=== PATIENT | female | born 1940 | race Caucasian/White ===

== ENCOUNTER 2022-09-27 11:20 | Inpatient (IN) ==
[2022-09-27] MEDS ORDERED: IOPAMIDOL 100 ML BOTTLE IV ONE (11:21)
--- NOTE | 2022-09-27 12:33 | Emergency Department Note ---
HPI General Chief complaint: Abdominal Pain Stated complaint: fall Time Seen by Provider: 09/27/22 12:33 Source: patient Mode of arrival: wheelchair Limitations: no limitations History of Present Illness HPI Narrative: Narrative: Patient is an 82-year-old female with a history of CVA, hyperlipidemia, A-fib, CKD, and CHF who presents to the emergency department due to nausea, vomiting, and increased bowel movements. She states that she has had multiple days of nausea, vomiting, and increased bowel movements. She states that she fell on Monday onto her right side. She states that since then she has had right arm pain, right chest/rib pain, and right leg pain. She endorses continued nausea. She also endorses abdominal pain that seems to be the worst in the right upper quadrant. She went to see her primary care provider, and her provider told her to come to the emergency department for imaging. Related Data Home Medications Medication Instructions Recorded Confirmed apixaban 5 mg tablet (Eliquis) 5 mg PO BID 08/31/20 09/27/22 atenolol 100 mg tablet 100 mg PO BID 08/31/20 09/27/22 levothyroxine 50 mcg tablet 50 mcg PO Q48 08/31/20 09/27/22 magnesium oxide 400 mg PO QDAY 08/31/20 09/27/22 multivitamin 1 tab PO QDAY 08/31/20 09/27/22 omega-3 fatty acids 1,000 mg 1,000 mg PO QDAY 08/31/20 09/27/22 capsule (Fish Oil Concentrate) potassium chloride 20 mEq 20 meq PO QDAY 08/31/20 09/27/22 tablet,extended release furosemide 20 mg tablet 40 mg PO QDAY 09/29/21 09/27/22 CholestOff Complete 450 tab PO QDAY 09/27/22 09/27/22 cholecalciferol (vitamin D3) 1,000 unit PO QDAY 09/27/22 09/27/22 ezetimibe 10 mg tablet (Zetia) 10 mg PO HS 09/27/22 09/27/22 levothyroxine 75 mcg tablet 75 mcg PO Q48H 09/27/22 09/27/22 nitroglycerin 0.4 mg sublingual 0.4 mg sublingual Q5M PRN Chest 09/27/22 09/27/22 tablet Pain spironolactone 25 mg tablet 25 mg PO QDAY 09/27/22 09/27/22 Allergies Allergy/AdvReac Type Severity Reaction Status Date / Time [id number] Reductase Allergy Severe edema and Verified 09/27/22 11:29 Inhibitor skin peels propoxyphene Allergy Unknown Unknown Verified 09/27/22 11:29 Review of Systems ROS ROS Narrative: Narrative: Constitutional: Denies fever or weakness Eyes: Denies eye pain or vision change ENT ED: Denies throat pain, hearing loss or rhinorrhea Cardiovascular: Reports chest pain; Denies dyspnea on exertion, orthopnea or edema Respiratory: Denies shortness of breath or cough Gastrointestinal: Reports abdominal pain, nausea and vomiting; Denies diarrhea, constipation, hematochezia or melena Musculoskeletal: Denies back pain or myalgia Integumentary: Denies rash or lesions Neurological: Denies headache, weakness, numbness, confusion or abnormal gait PFSH Narrative Patient History Narrative: Narrative: Medical/Surgical/Family History All Active Problems (Updated 09/27/22 @ 20:25 by Catracho Osuna MD) Acute cholecystitis (Acute) Cholecystitis, acute with cholelithiasis (Acute) Chronic obstructive pulmonary disease (Chronic) Pulmonary hypertension (Acute) Cough (Acute) SARA on CPAP (Chronic) High cholesterol (Chronic) Shortness of breath (Chronic) Palpitations (Chronic) Diarrhea (Chronic) Back pain (Chronic) CVA (cerebral vascular accident) (Chronic) History of skin cancer (Chronic) Morbid obesity (Chronic) Anxiety disorder (Chronic) Arthritis of both knees (Chronic) Hypothyroid (Chronic) Coronary arteriosclerosis (Chronic) Hyperlipidemia (Chronic) halfway (current) use of anticoagulants (Chronic) Pacemaker (Chronic) Atrial fibrillation (Chronic) Chronic kidney disease, stage III (moderate) (Chronic) Chronic diastolic heart failure (Chronic) Lymphocytic colitis (Chronic) 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) SARA (obstructive sleep apnea) (Chronic) Medical History Anxiety disorder Arthritis of both knees Atrial fibrillation Back pain Hipolito hyp ht/kd I-IV w hf Chronic diastolic heart failure Chronic kidney disease, stage III (moderate) Coronary arteriosclerosis CVA (cerebral vascular accident) Diarrhea High cholesterol History of skin cancer Hyperlipidemia Hypothyroid halfway (current) use of anticoagulants Lymphocytic colitis Morbid obesity SARA (obstructive sleep apnea) SARA on CPAP Pacemaker Palpitations Shortness of breath Surgical History History of appendectomy History of brain surgery Blood clot removed. History of cardiac pacemaker in situ History of hysterectomy History of lumpectomy of both breasts Family History Mother Bladder cancer Brother Bladder cancer Lung cancer Father Lung cancer Social History Smoking Status: Never smoker Alcohol Intake Frequency: does not drink Substance Use: does not use Exam Narrative Narrative: Narrative: General Limitations: no limitations General appearance: Present alert and in no apparent distress; Absent anxious, appears intoxicated or sleepy Head Head: Present atraumatic and normocephalic Eye Eye: Present EOMI; Absent scleral icterus or nystagmus ENT ENT: Present mucous membranes moist; Absent nasal congestion Neck Neck: Present full ROM and trachea midline Chest Chest: Present normal inspection, symmetric chest wall rise and tenderness Respiratory Respiratory: Present normal lung sounds bilaterally; Absent respiratory distress, rales/crackles, wheezes, stridor or accessory muscle use Cardiovascular Cardiovascular: Present regular rate, normal rhythm and normal heart sounds Adbominal Abdominal: Present soft, tenderness, guarding and normal bowel sounds; Absent distention, rebound or rigidity Extremities Extremities: Present normal inspection and full ROM Back Back: Present normal inspection and full ROM Neurological Neurological: Present alert and oriented X3 Psychiatric Psychiatric: Present normal affect and normal mood Skin Skin: Present warm (WNL), dry and normal color Course Vital Signs Vital signs: Vital Signs Temperature 97.0 F 09/27/22 11:25 Pulse Rate 65 09/27/22 11:25 Respiratory Rate 18 09/27/22 11:25 Blood Pressure 127/70 09/27/22 11:25 Pulse Oximetry (%) 93 09/27/22 11:25 Oxygen Delivery Method Room Air 09/27/22 11:25 Temperature 97.0 F 09/27/22 19:12 Pulse Rate 64 09/27/22 20:01 Respiratory Rate 18 09/27/22 19:12 Blood Pressure 126/64 09/27/22 20:01 Pulse Oximetry (%) 95 09/27/22 20:01 Oxygen Delivery Method Room Air 09/27/22 11:25 [facility] Narrative Medical decision making narrative: Narrative: Patient is an 82 yo F who presents to the emergency department due to nausea, vomiting, and abdominal pain. Differential diagnoses include gallbladder disease, hepatitis, sbo, gastroenteritis, colitis, and diverticulitis. Patient's labs are reassuring. CT shows cholecystitis. Dr. Strange saw patient on the board and called regarding plan. He agreed to see and evaluate patient for admission. Lab Data 09/27/22 13:13 Labs: Lab Results 09/27/22 09/27/22 09/27/22 Range/Units 12:51 12:52 13:13 WBC 9.7 (4.5-11.0) K/mcL RBC 4.72 (3.59-5.38) M/mcL Hgb 13.0 (11.2-15.7) g/dL Hct 40.6 (34.1-44.9) % POC Hct 43.0 (36-48) MCV 86.0 (80.0-100.0) fL MCH 27.5 (26.0-34.0) pg MCHC 32.0 (31.0-36.0) g/dL RDW 15.2 H (11.5-14.5) % Plt Count 236 (140-440) K/mcL MPV 11.4 (8.8-12.5) fL Immature Gran % (Auto) 0.5 (0.0-0.5) % Neut % (Auto) 52.5 (38.0-78.0) % Lymph % (Auto) 26.9 (15.5-49.0) % [place] % (Auto) 16.6 H (1.0-12.0) % Eos % (Auto) 3.0 (0.0-7.0) % Baso % (Auto) 0.5 (0.0-2.0) % Lymph # (Auto) 2.60 (1.50-4.80) K/mcL [place] # (Auto) 1.61 H (0.10-0.90) K/mcL Eos # (Auto) 0.29 (0.00-0.70) K/mcL Baso # (Auto) 0.05 (0.00-0.30) K/mcL Immature Gran # 0.05 (0.00-0.05) K/mcl Absolute Neutrophils 5.08 (1.80-8.00) K/mcL POC VBG pH 7.46 H (7.32-7.42) POC VBG pCO2 at Temp 40.7 L (41-51) POC VBG pO2 32 (25-40) POC VBG HCO3 28.8 H (24-28) POC VBG Total CO2 30.0 H (25-29) POC Venous O2 Sat 64.0 (40-70) POC VBG Base Excess 5.0 H* (-2-2) VBG Lactic Acid 1.0 (0.5-2) POC Sodium 137 (133-145) POC Potassium 3.2 L (3.3-5.1) POC Chloride 97 (96-108) POC Total CO2 27.0 (22-30) POC Anion Gap 17.0 H (8.0-16.0) POC BUN 24 H (6-20) POC Creatinine 1.0 (0.6-1.2) POC Glucose 115 H (70-105) POC WB Ioniz Calcium 1.15 L (1.16-1.32) Total Bilirubin (0.1-1.0) mg/dL Direct Bilirubin (<0.3) mg/dL AST (<32) U/L ALT (<40) U/L Alkaline Phosphatase (39-117) U/L NT-Pro-B Natriuret Pep (<450.0) pg/mL Total Protein (5.9-8.4) gm/dL Albumin (3.2-5.2) gm/dL Globulin (2.2-3.7) gm/dL Lipase (7-60) U/L Urine Color Urine Appearance (Clear) Urine pH (5.0-9.0) Ur Specific [place] (1.000-1.035) Urine Protein (Negative) mg/dL Urine Glucose (UA) (Negative) mg/dL Urine Ketones (Negative) mg/dL Urine Occult Blood (Negative) mg/dL Urine Nitrate (Negative) Urine Bilirubin (Negative) mg/dL Urine Urobilinogen mg/dL Ur Leukocyte Esterase (Negative) /uL Urine RBC (0-3) /hpf Urine WBC (0-4) /hpf Ur Squamous Epith Cells (0-4) /hpf Other Crystals (None) /hpf Urine Bacteria (0) /hpf Urine Mucus (None) /hpf Ur Culture Indicated? 09/27/22 09/27/2209/27/23 Range/Units 13:13 13:13 13:48 WBC (4.5-11.0) K/mcL RBC (3.59-5.38) M/mcL Hgb (11.2-15.7) g/dL Hct (34.1-44.9) % POC Hct (36-48) MCV (80.0-100.0) fL MCH (26.0-34.0) pg MCHC (31.0-36.0) g/dL RDW (11.5-14.5) % Plt Count (140-440) K/mcL MPV (8.8-12.5) fL Immature Gran % (Auto) (0.0-0.5) % Neut % (Auto) (38.0-78.0) % Lymph % (Auto) (15.5-49.0) % [place] % (Auto) (1.0-12.0) % Eos % (Auto) (0.0-7.0) % Baso % (Auto) (0.0-2.0) % Lymph # (Auto) (1.50-4.80) K/mcL [place] # (Auto) (0.10-0.90) K/mcL Eos # (Auto) (0.00-0.70) K/mcL Baso # (Auto) (0.00-0.30) K/mcL Immature Gran # (0.00-0.05) K/mcl Absolute Neutrophils (1.80-8.00) K/mcL POC VBG pH (7.32-7.42) POC VBG pCO2 at Temp (41-51) POC VBG pO2 (25-40) POC VBG HCO3 (24-28) POC VBG Total CO2 (25-29) POC Venous O2 Sat (40-70) POC VBG Base Excess (-2-2) VBG Lactic Acid (0.5-2) POC Sodium (133-145) POC Potassium (3.3-5.1) POC Chloride (96-108) POC Total CO2 (22-30) POC Anion Gap (8.0-16.0) POC BUN (6-20) POC Creatinine (0.6-1.2) POC Glucose (70-105) POC WB Ioniz Calcium (1.16-1.32) Total Bilirubin 0.7 (0.1-1.0) mg/dL Direct Bilirubin 0.3 H (<0.3) mg/dL AST 47 H (<32) U/L ALT 35 (<40) U/L Alkaline Phosphatase 140 H (39-117) U/L NT-Pro-B Natriuret Pep 2488.0 H (<450.0) pg/mL Total Protein 7.7 (5.9-8.4) gm/dL Albumin 3.2 (3.2-5.2) gm/dL Globulin 4.5 H (2.2-3.7) gm/dL Lipase 18 (7-60) U/L Urine Color Yellow Urine Appearance Hazy A (Clear) Urine pH 7.0 (5.0-9.0) Ur Specific [place] 1.006 (1.000-1.035) Urine Protein Negative (Negative) mg/dL Urine Glucose (UA) Negative (Negative) mg/dL Urine Ketones Negative (Negative) mg/dL Urine Occult Blood 0.03 (Negative) mg/dL Urine Nitrate Pos A (Negative) Urine Bilirubin Negative (Negative) mg/dL Urine Urobilinogen Negative mg/dL Ur Leukocyte Esterase Negative (Negative) /uL Urine RBC 9 H (0-3) /hpf Urine WBC 2 (0-4) /hpf Ur Squamous Epith Cells 1 (0-4) /hpf Other Crystals None (None) /hpf Urine Bacteria Few A (0) /hpf Urine Mucus Few A (None) /hpf Ur Culture Indicated? Yes Discharge Plan Patient/Caregiver Discharge Instructions Pt seen by STOCK CAR DRIVER/PA only: No Clinical Impression: Acute cholecystitis Patient Disposition: Xfer As Outpt/Obs ([facility]) Discharge Date/Time: 09/27/22 20:00
[2022-09-27 12:55] LABS: POC Calcium, Ionized 1.15 (1.16-1.32); POC Potassium 3.2 (3.3-5.1)
[2022-09-27] MEDS ORDERED: 0.9 % SODIUM CHLORIDE 1,000 ML IV ONE (13:45)
[2022-09-27 13:59] LABS: Basophils # (Auto) 0.05 K/mcL (0.00-0.30); Basophils % (Auto) 0.5 % (0.0-2.0); Eosinophils # (Auto) 0.29 K/mcL (0.00-0.70); Hematocrit 40.6 % (34.1-44.9); Lymphocytes % (Auto) 26.9 % (15.5-49.0); Mean Platelet Volume 11.4 fL (8.8-12.5); Monocytes # (Auto) 1.61 K/mcL (0.10-0.90); Monocytes % (Auto) 16.6 % (1.0-12.0); Neutrophils % (Auto) 52.5 % (38.0-78.0); Platelet Count 236 K/mcL (140-440); RBC 4.72 M/mcL (3.59-5.38); Red Cell Distribution Width 15.2 % (11.5-14.5); WBC 9.7 K/mcL (4.5-11.0)
[2022-09-27 14:17] LABS: ALT/SGPT 35 U/L (<40); AST/SGOT 47 U/L (<32); Albumin 3.2 gm/dL (3.2-5.2); Alkaline Phosphatase 140 U/L (39-117); Bilirubin,Direct 0.3 mg/dL (<0.3); Bilirubin,Total 0.7 mg/dL (0.1-1.0); Globulin 4.5 gm/dL (2.2-3.7)
--- NOTE | 2022-09-27 14:21 | XRay Report ---
CLINICAL INFORMATION: Fall, upper arm tenderness COMPARISON: None. FINDINGS: There is no fracture or other osseous abnormality. Moderate acromioclavicular and glenohumeral degenerative changes noted. Elbow joint is normal. No soft tissue normality. IMPRESSION: No fracture. Degenerative change Interpreted and Authenticated by: Kunal May 09/27/22
--- NOTE | 2022-09-27 14:22 | XRay Report ---
CLINICAL INFORMATION: Fall, thigh tenderness COMPARISON: None. FINDINGS: No fracture identified. Right hip is normal. Moderate patellofemoral and tibiofemoral degenerative change noted. Soft tissues are normal. IMPRESSION: No fracture. Degeneration Interpreted and Authenticated by: Kunal May 09/27/22
[2022-09-27 15:00] LABS: Appearance,Urine HAZY (Clear); Bacteria,Urine FEW /hpf (0); Bilirubin,Urine Negative (Negative); Color,Urine YELLOW; Culture Indicated,Urine Yes; Glucose,Urine (UA) Negative (Negative); Ketones,Urine Negative (Negative); Leukocyte Esterase,Urine Negative /uL (Negative); Mucus,Urine FEW /hpf; Nitrate,Urine POS (Negative); Protein,Urine Negative (Negative); Specific Gravity,Urine 1.006 (1.000-1.035); Urine Blood 0.03 mg/dL (Negative); Urine RBC 9 /hpf (0-3); Urine Squamous Epithelial Cell 1 /hpf (0-4); Urine WBC 2 /hpf (0-4); Urobilinogen,Urine Negative
--- NOTE | 2022-09-27 16:16 | Cat Scan Report ---
CLINICAL INFORMATION: Chest pain and shortness of breath. History of trauma-fall diffuse abdominal pain COMPARISON: None. TECHNIQUE: 80 cc of Isovue-370 were injected intravenously, and 50 seconds later, 0.625 mm helical slices were obtained from the lung apices through the subtrochanteric regions of the femurs. Following reconstruction, 2.5 mm sagittal, coronal and axial reformatted images were processed and reviewed at multiple windows and levels. 7 mm MIP reconstructions were obtained through the lungs to optimize nodule detection.The exam was performed using radiation dose optimization techniques including, but not limited to, automated exposure control, adjustment of the mA and/or kV according to patient size and use of iterative reconstruction technique. FINDINGS: Pulmonary parenchymal windows show moderate patchy airspace disease in the posterior right lower lobe which could indicate developing infiltrate or atypical atelectasis. Subsegmental atelectasis in the posterior left lower lobe. The pleural spaces are unremarkable-no effusions. Mediastinal windows show the heart is moderately enlarged with dual-chamber pacemaker leads as satisfactory position. Heavy calcific plaque present in the coronary arteries. The thoracic aorta and pulmonary arteries are normal diameter-no gross evidence of central pulmonary embolus. The left upper lobe pulmonary veins drain into an anomalous drainage vein stenting along the left paramediastinal region and anterior to the left left subclavian vein. This could represent a de facto [id number] shunt. The esophagus is grossly normal. A 17 mm nodule inferior left thyroid lobe has been stable since the previous chest CT and is likely an adenoma. Abdominal images show a 20 mm stone within the gallbladder. Gallbladder wall is massively thickened with pericholecystic fluid compatible with severe cholecystitis. Intrahepatic and common bile ducts are normal caliber CBD is 5 mm. The liver, both kidneys, adrenal glands, spleen, pancreas and aorta, including aortic branches, are normal in size, configuration and attenuation without focal lesion. There is no free air, free fluid or adenopathy. Pelvic images show normal urinary bladder. Anteflex uterus is normal postmenopausal size. Both ovarian regions are unremarkable. The stomach, small bowel, appendix region and large bowel are grossly normal. Bone windows show no osseous abnormality throughout the chest, abdomen or pelvis. IMPRESSION: 1. Severe cholecystitis. 2. Moderate airspace disease posterior right lower lobe either atypical atelectasis or a developing infiltrate. Subsegmental atelectasis present in the posterior left lower lobe. 3. 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 This could represent a de facto left to right shunt. This may contribute to hypoxia. 4. Moderate cardiomegaly with heavy calcific plaque in the coronary arteries. Interpreted and Authenticated by: Kunal May 09/27/22
[2022-09-27] MEDS ORDERED: morphine 4 MG/ML VIAL IV ONE (16:45)
[2022-09-27] MEDS ORDERED: ONDANSETRON 4 MG/2 ML VIAL IV ONE (16:45)
[2022-09-27] MEDS ORDERED: ONDANSETRON 4 MG/2 ML VIAL ONE (16:57)
[2022-09-27] MEDS ORDERED: HYDROmorphone 1 MG/ML SYRINGE IV PRN (17:26)
--- NOTE | 2022-09-27 17:41 | General Surg History&Physical ---
HPI History of Present Illness Patient information: Note initiated : 09/27/22 at 5:39 pm Service Date, if different from initiated Date: [] Patient: Tracy Mae 82 y/o F admitted on for fall. Chief Complaint: [] Chief complaint: Right upper quadrant abdominal pain canceled it is scheduled History of present illness: Ms. Mae is a 82 year old F with history of abdominal pain nausea and vomiting times. She is also had temperature elevations to 104 degrees. Her symptoms became much worse and she had to falls associated with the pain and fever. She developed more right upper quadrant pain and finally came to the emergency room where evaluation reveals that she has right upper quadrant and epigastric tenderness with guarding and rebound. CT of the abdomen shows acute cholecystitis with a large gallstone in the neck of the gallbladder. White blood count is 9.7. There is minimal elevation of AST and alkaline phosphatase. Bilirubin is normal. Patient has acute cholecystitis with cholelithiasis and will need urgent cholecystectomy. She is on apixaban but probably has not absorbed the medication because of nausea and vomiting. She is counseled for cholecystectomy to be performed tomorrow. She is informed that with the severity of the inflammation that she may need to have an open procedure if la paroscopic approach cannot be done safely. Patient has history of diastolic dysfunction but has a baseline systolic ejection fraction of 45%. The apixaban that she receives is for atrial fibrillation however she has a dual-chamber pacemaker in place. Constitutional Constitutional: Present anorexia, fatigue, lethargy, malaise and weakness Cardiovascular Cardiovascular: Present dyspnea on exertion, irregular heart rhythm, palpatations and pedal edema Respiratory Respiratory: Present dyspnea on exertion and pain on inspirtation; Absent wheezing Gastrointestinal Gastrointestinal: Present abdominal pain, belching, nausea and vomiting Musculoskeletal Musculoskeletal: Present abnormal gait, arthralgias, muscle cramps, muscle weakness and myalgias Integumentary Integumentary: Absent pruritus, rash, swelling or jaundice Neurological Neurological: Present frequent falls and memory loss Psychiatric Psychiatric: Present abnormal sleep pattern Hematologic/Lymphatic Hematologic/Lymphatic: Absent easy bleeding, easy bruising or lymphadenopathy Allergic/Immunologic Allergic/Immunologic: Absent tongue swelling, throat swelling, uticaria, wheezing or lip swelling PFSH PFSH All Active Problems (Updated 09/29/22 @ 17:35 by Alice Strange MD) Postoperative hemorrhage of skin following non-dermatologic procedure (Acute) Acute gangrenous cholecystitis (Acute) Acute cholecystitis (Acute) Cholecystitis, acute with cholelithiasis (Acute) Chronic obstructive pulmonary disease (Chronic) Pulmonary hypertension (Acute) Cough (Acute) SARA on CPAP (Chronic) High cholesterol (Chronic) Shortness of breath (Chronic) Palpitations (Chronic) Diarrhea (Chronic) Back pain (Chronic) CVA (cerebral vascular accident) (Chronic) History of skin cancer (Chronic) Morbid obesity (Chronic) Anxiety disorder (Chronic) Arthritis of both knees (Chronic) Hypothyroid (Chronic) Coronary arteriosclerosis (Chronic) Hyperlipidemia (Chronic) terminal make up operator (current) use of anticoagulants (Chronic) Pacemaker (Chronic) Atrial fibrillation (Chronic) Chronic kidney disease, stage III (moderate) (Chronic) Chronic diastolic heart failure (Chronic) Lymphocytic colitis (Chronic) 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) SARA (obstructive sleep apnea) (Chronic) Medical History Anxiety disorder Arthritis of both knees Atrial fibrillation Back pain Hipolito hyp ht/kd I-IV w hf Chronic diastolic heart failure Chronic kidney disease, stage III (moderate) Coronary arteriosclerosis CVA (cerebral vascular accident) Diarrhea High cholesterol History of skin cancer Hyperlipidemia Hypothyroid USP (current) use of anticoagulants Lymphocytic colitis Morbid obesity SARA (obstructive sleep apnea) SARA on CPAP Pacemaker Palpitations Shortness of breath Surgical History History of appendectomy History of brain surgery Blood clot removed. History of cardiac pacemaker in situ History of hysterectomy History of lumpectomy of both breasts Family History Mother Bladder cancer Brother Bladder cancer Lung cancer Father Lung cancer Social History marital status: occupational status: retired occupation: Retired-Nurse's Aide smoking status: Never smoker alcohol intake frequency: does not drink substance use type: does not use MEDS/ALLERGIES Home Medications and Allergies Home Medications Medication Instructions Recorded Confirmed Type apixaban 5 mg tablet (Eliquis) 5 mg PO BID 08/31/20 09/27/22 History atenolol 100 mg tablet 100 mg PO BID 08/31/20 09/27/22 History levothyroxine 50 mcg tablet 50 mcg PO Q48 08/31/20 09/27/22 History magnesium oxide 400 mg PO QDAY 08/31/20 09/27/22 History multivitamin 1 tab PO QDAY 08/31/20 09/27/22 History omega-3 fatty acids 1,000 mg 1,000 mg PO QDAY 08/31/20 09/27/22 History capsule (Fish Oil Concentrate) potassium chloride 20 mEq 20 meq PO QDAY 08/31/20 09/27/22 History tablet,extended release furosemide 20 mg tablet 40 mg PO QDAY 09/29/21 09/27/22 History CholestOff Complete 450 tab PO QDAY 09/27/22 09/27/22 History cholecalciferol (vitamin D3) 1,000 unit PO QDAY 09/27/22 09/27/22 History ezetimibe 10 mg tablet (Zetia) 10 mg PO HS 09/27/22 09/27/22 History levothyroxine 75 mcg tablet 75 mcg PO Q48H 09/27/22 09/27/22 History nitroglycerin 0.4 mg sublingual 0.4 mg sublingual Q5M PRN Chest 09/27/22 09/27/22 History tablet Pain spironolactone 25 mg tablet 25 mg PO QDAY 09/27/22 09/27/22 History Allergies Allergy/AdvReac Type Severity Reaction Status Date / Time [id number] Reductase Allergy Severe edema and Verified 09/27/22 11:29 Inhibitor skin peels propoxyphene Allergy Unknown Unknown Verified 09/27/22 11:29 Physical Examination Vital Signs Vital signs: Temp Pulse Resp BP Pulse Ox O2 Del Method 97.0 F 64 18 138/62 98 Room Air 09/27/22 11:25 09/27/22 16:46 09/27/22 11:25 09/27/22 16:46 09/27/22 16:46 09/27/22 11:25 General physical appearance General physical exam: well developed, well nourished, moderate distress, moderate pain, chronically ill and obese Eyes Eye exam: PERRL and normal ocular movement; negative icteric ENT ENT exam: normal mucosa Head Head exam IM: Present atraumatic, normal inspection and normocephalic Neck Neck exam: no masses, no bruits, trachea midline, no lymphadenopathy and no venous distension Cardiovascular Cardiovascular exam IM: Present +S1 and +S2; Absent irregular rhythm or JVD Respiratory Respiratory exam: normal expansion, normal respiratory effort and clear to auscultation Abdomen Abdomen: Present tender (Patient anything moderately severe tenderness in epigastrium and right upper quadrant with guarding and rebound ) Integumentary Integumentary: Present no rash, no growths and no abnormal pigmentation Neurologic Neurologic: Present normal coordination and normal sensation Musculoskeletal Musculoskeletal: Present other (Gait and stance not tested due to weakness) Psychiatric Psychiatric: Present oriented to time, oriented to person, oriented to place, speech is normal and memory intact Results Labs 10/02/22 05:46 10/02/22 05:46 Labs: Abnormal lab results 09/27/22 09/27/22 09/27/22 Range/Units 12:51 12:52 13:13 RDW 15.2 H (11.5-14.5) % [place] % (Auto) 16.6 H (1.0-12.0) % [place] # (Auto) 1.61 H (0.10-0.90) K/mcL POC VBG pH 7.46 H (7.32-7.42) POC VBG pCO2 at Temp 40.7 L (41-51) POC VBG HCO3 28.8 H (24-28) POC VBG Total CO2 30.0 H (25-29) POC VBG Base Excess 5.0 H* (-2-2) POC Potassium 3.2 L (3.3-5.1) POC Anion Gap 17.0 H (8.0-16.0) POC BUN 24 H (6-20) POC Glucose 115 H (70-105) POC WB Ioniz Calcium 1.15 L (1.16-1.32) Direct Bilirubin (<0.3) mg/dL AST (<32) U/L Alkaline Phosphatase (39-117) U/L Globulin (2.2-3.7) gm/dL Urine Appearance (Clear) Urine Nitrate (Negative) Urine RBC (0-3) /hpf Urine Bacteria (0) /hpf Urine Mucus (None) /hpf 09/27/22 09/27/22 Range/Units 13:13 13:48 RDW (11.5-14.5) % [place] % (Auto) (1.0-12.0) % [place] # (Auto) (0.10-0.90) K/mcL POC VBG pH (7.32-7.42) POC VBG pCO2 at Temp (41-51) POC VBG HCO3 (24-28) POC VBG Total CO2 (25-29) POC VBG Base Excess (-2-2) POC Potassium (3.3-5.1) POC Anion Gap (8.0-16.0) POC BUN (6-20) POC Glucose (70-105) POC WB Ioniz Calcium (1.16-1.32) Direct Bilirubin 0.3 H (<0.3) mg/dL AST 47 H (<32) U/L Alkaline Phosphatase 140 H (39-117) U/L Globulin 4.5 H (2.2-3.7) gm/dL Urine Appearance Hazy A (Clear) Urine Nitrate Pos A (Negative) Urine RBC 9 H (0-3) /hpf Urine Bacteria Few A (0) /hpf Urine Mucus Few A (None) /hpf Diabetes panel 09/27/22 Range/Units 13:13 AST 47 H (<32) U/L ALT 35 (<40) U/L Alkaline Phosphatase 140 H (39-117) U/L Total Protein 7.7 (5.9-8.4) gm/dL Albumin 3.2 (3.2-5.2) gm/dL Calcium panel 09/27/22 Range/Units 13:13 Albumin 3.2 (3.2-5.2) gm/dL Adrenal panel 09/27/22 Range/Units 13:13 Total Bilirubin 0.7 (0.1-1.0) mg/dL AST 47 H (<32) U/L ALT 35 (<40) U/L Alkaline Phosphatase 140 H (39-117) U/L Total Protein 7.7 (5.9-8.4) gm/dL Albumin 3.2 (3.2-5.2) gm/dL All other labs normal. A/P Assessment and plan (1) Cholecystitis, acute with cholelithiasis: Status: Acute (2) Chronic obstructive pulmonary disease: Status: Chronic Qualifiers: COPD type: emphysema Emphysema type: centrilobular Qualified Code(s): J43.2 - Centrilobular emphysema (3) Pulmonary hypertension: Status: Acute (4) SARA on CPAP: Status: Chronic (5) Coronary arteriosclerosis: Status: Chronic (6) terminal make up operator (current) use of anticoagulants: Status: Chronic (7) Pacemaker: Status: Chronic (8) Atrial fibrillation: Status: Chronic (9) Chronic kidney disease, stage III (moderate): Status: Chronic Plan proBNP Counseled for cholecystectomy possible open Type and cross 2 units packed red cells Sepsis Sepsis Identified: No Time Spent With Patient Time: Total time spent is greater than 50% in coordination of care (as documented) at patient's floor/unit and/or counseling patient:
[2022-09-27] MEDS ORDERED: 0.9 % SODIUM CHLORIDE 250 ML IV SCH (17:45)
--- NOTE | 2022-09-27 17:55 | XRay Report ---
CLINICAL INFORMATION: Preop evaluation; COPD COMPARISON: 05/24/2022. FINDINGS: Moderate cardiomegaly is unchanged. Pacemaker leads in satisfactory position. Mediastinum is normal. The pulmonary vessels are now mildly distended is mild interstitial edema throughout both lungs. Mild bibasilar airspace disease likely reflects atelectasis. There are small bilateral pleural effusions IMPRESSION: Mild CHF Interpreted and Authenticated by: Kunal May 09/27/22
[2022-09-27] MEDS: PIPERACILLIN SODIUM/TAZOBACTAM 3.375 GM in DEXTROSE 5% IN WATER 50 ML IV SCH (18:04)
[2022-09-27] MEDS: LACTATED RINGERS 1,000 ML IV SCH (18:30)
[2022-09-27] MEDS ORDERED: POTASSIUM CHLORIDE 40 MEQ in DEXTROSE 5% IN WATER 500 ML IV ONE (19:00)
[2022-09-27] MEDS: 0.9 % SODIUM CHLORIDE 10 ML SYRINGE IV SCH (21:29)
[2022-09-27] MEDS: SENNOSIDES 1 TABLET PO SCH (22:02)
[2022-09-27] MEDS: DOCUSATE SODIUM 100 MG CAPSULE PO SCH (22:02)
[2022-09-27] MEDS: ATENOLOL 50 MG TABLET PO SCH (22:02)
[2022-09-27] MEDS: oxyCODONE IR 5 MG TABLET PO PRN (23:30)
[2022-09-28] MEDS: PIPERACILLIN SODIUM/TAZOBACTAM 3.375 GM in DEXTROSE 5% IN WATER 50 ML IV SCH ×5 (00:55→23:57)
[2022-09-28] MEDS: oxyCODONE IR 5 MG TABLET PO PRN ×2 (04:34→19:32)
[2022-09-28 06:58] LABS: Basophils # (Auto) 0.06 K/mcL (0.00-0.30); Basophils % (Auto) 0.5 % (0.0-2.0); Eosinophils # (Auto) 0.42 K/mcL (0.00-0.70); Eosinophils % (Auto) 3.6 % (0.0-7.0); Hemoglobin 12.2 g/dL (11.2-15.7); Lymphocytes # (Auto) 1.88 K/mcL (1.50-4.80); Lymphocytes % (Auto) 15.9 % (15.5-49.0); Mean Cell Volume 86.6 fL (80.0-100.0); Mean Corpuscular HGB Conc 32.1 g/dL (31.0-36.0); Mean Platelet Volume 11.4 fL (8.8-12.5); Monocytes % (Auto) 12.7 % (1.0-12.0); Neutrophils % (Auto) 66.9 % (38.0-78.0); Platelet Count 226 K/mcL (140-440); RBC 4.39 M/mcL (3.59-5.38); Red Cell Distribution Width 15.5 % (11.5-14.5); WBC 11.8 K/mcL (4.5-11.0)
[2022-09-28] MEDS: LEVOTHYROXINE 50 MCG TABLET PO SCH (07:08)
[2022-09-28] MEDS: 0.9 % SODIUM CHLORIDE 10 ML SYRINGE IV SCH ×4 (07:08→23:58)
[2022-09-28 07:48] LABS: ALT/SGPT 29 U/L (<40); AST/SGOT 41 U/L (<32); Albumin 2.7 gm/dL (3.2-5.2); Albumin/Globulin Ratio 0.7 (1.0-2.3); Alkaline Phosphatase 128 U/L (39-117); Bilirubin,Direct 0.3 mg/dL (<0.3); Bilirubin,Total 0.8 mg/dL (0.1-1.0); Blood Urea Nitrogen 21 mg/dL (8-23); Calcium 8.4 mg/dL (8.6-10.4); Carbon Dioxide 22 mmol/L (22-30); Chloride 98 mmol/L (96-108); Globulin 4.1 gm/dL (2.2-3.7); Glomerular Filtration Rate 53; Glucose 116 mg/dL (70-105); Lactate Dehydrogenase 220 U/L (135-225); Phosphorous 3.4 mg/dL (2.5-4.5); Triglycerides 152 mg/dL (<150)
[2022-09-28] MEDS: DOCUSATE SODIUM 100 MG CAPSULE PO SCH ×2 (08:28→20:35)
[2022-09-28] MEDS ORDERED: SUGAMMADEX SODIUM 200 MG/2 ML VIAL IV ONE (08:30)
[2022-09-28] MEDS ORDERED: ONDANSETRON 4 MG/2 ML VIAL ONE (08:30)
[2022-09-28] MEDS ORDERED: MAGNESIUM SULFATE 2 GM/50 ML BAG IV ONE (08:30)
[2022-09-28] MEDS ORDERED: DEXAMETHASONE 10 MG/ML VIAL ONE (08:30)
[2022-09-28] MEDS ORDERED: PROPOFOL 200 MG/20 ML VIAL IV ONE (08:30)
[2022-09-28] MEDS ORDERED: KETAMINE 50 MG/ML Syringe (ANEST) IV ONE (08:30)
[2022-09-28] MEDS ORDERED: ROCURONIUM 10 MG/ML ML IV ONE (08:30)
[2022-09-28] MEDS ORDERED: fentaNYL 100 MCG/2 ML VIAL IV ONE (08:30)
[2022-09-28] MEDS ORDERED: LIDOCAINE HCL/PF 100 MG/5 ML SYRINGE IV ONE (08:30)
[2022-09-28] MEDS ORDERED: ACETAMINOPHEN 1,000 MG/100 ML BAG IV ONE (08:49)
[2022-09-28] MEDS ORDERED: fentaNYL 100 MCG/2 ML VIAL IV PRN (08:49)
[2022-09-28] MEDS ORDERED: ONDANSETRON 4 MG/2 ML VIAL IV PRN (08:49)
[2022-09-28] MEDS ORDERED: IPRATROPIUM/ALBUTEROL 3 ML AMPUL.NEB NEB PRN (08:49)
[2022-09-28] MEDS ORDERED: MEPERIDINE 25 MG/ML VIAL IV PRN (08:49)
[2022-09-28] MEDS ORDERED: NALOXONE HCL 0.4 MG/ML VIAL IV PRN (08:49)
[2022-09-28] MEDS ORDERED: LACTATED RINGERS 250 ML IV PRN (08:49)
[2022-09-28] MEDS ORDERED: PROMETHAZINE 25 MG/ML VIAL IV PRN (08:49)
[2022-09-28] MEDS ORDERED: METHOCARBAMOL 1,000 MG/10 ML VIAL IV PRN (08:49)
[2022-09-28] MEDS ORDERED: diphenhydrAMINE 50 MG/ML VIAL IV PRN (08:49)
[2022-09-28] MEDS ORDERED: LACTATED RINGERS 1,000 ML IV SCH (09:00)
--- NOTE | 2022-09-28 10:24 | Brief Operative Note ---
Brief Operative Note Date of procedure: 09/28/22 Pre-op diagnosis: acute cholecystitis with cholelithiasis Post-op diagnosis: other (gangrenous cholecystitis with perforation ;cholelithiasis) Procedure: open cholecystectomy with drainage Grafts/Implants: No (laexandrea drain #10 ) Anesthesia: GETA Findings: acute severe infection of gallbladder with perforation into duodenum; large gallstones Complications: none Surgeon: Alice Strange Estimated blood loss (cc): 50 Specimens Removed/Pathology: other (gallbladder with stones) Condition: stable Disposition: PACU
[2022-09-28] MEDS: ATENOLOL 50 MG TABLET PO SCH ×2 (12:16→20:35)
[2022-09-28] MEDS: LACTATED RINGERS 1,000 ML IV SCH ×2 (18:44→18:52)
[2022-09-28] MEDS: SENNOSIDES 1 TABLET PO SCH (19:25)
[2022-09-29] MEDS: oxyCODONE IR 5 MG TABLET PO PRN ×2 (04:54→20:40)
[2022-09-29] MEDS: PIPERACILLIN SODIUM/TAZOBACTAM 3.375 GM in DEXTROSE 5% IN WATER 50 ML IV SCH ×4 (05:30→23:14)
[2022-09-29] MEDS: 0.9 % SODIUM CHLORIDE 10 ML SYRINGE IV SCH ×3 (05:30→20:42)
[2022-09-29] MEDS: ATENOLOL 50 MG TABLET PO SCH ×3 (08:43→20:40)
[2022-09-29] MEDS: DOCUSATE SODIUM 100 MG CAPSULE PO SCH ×2 (08:43→20:40)
[2022-09-29] MEDS: LEVOTHYROXINE 50 MCG TABLET PO SCH (08:43)
[2022-09-29] MEDS: LACTATED RINGERS 1,000 ML IV SCH ×2 (08:46→22:10)
--- NOTE | 2022-09-29 12:00 | EKG ---
[facility] Test Date: 2022-09-27 Pat Name: Tracy Mae Department: ED Room: Gender: Female Account Financial Manager: : 1940 Requested By: Alice Strange Order Number: [id number] Reading MD: Stuart Black Measurements Intervals [place] Rate: 65 P: -72 OK: 78 QRS: 6 QRSD: 100 T: 227 QT: 468 QTc: 486 Interpretive Statements Ventricular-paced rhythm No further analysis attempted due to paced rhythm Electronically Signed On 09-29-2022 11:59:59 PDT by Stuart Black /store/M0/[id number].pdf
[2022-09-29 12:34] LABS: POC Calcium, Ionized 1.06 (1.16-1.32); POC Creatinine 1.3 (0.6-1.2); POC Potassium 4.1 (3.3-5.1)
[2022-09-29 13:20] LABS: Hematocrit 29.2 % (34.1-44.9); Hemoglobin 9.3 g/dL (11.2-15.7)
[2022-09-29 14:08] LABS: ALT/SGPT 26 U/L (<40); AST/SGOT 33 U/L (<32); Albumin 2.4 gm/dL (3.2-5.2); Albumin/Globulin Ratio 0.6 (1.0-2.3); Alkaline Phosphatase 110 U/L (39-117); Bilirubin,Direct 0.4 mg/dL (<0.3); Bilirubin,Total 0.9 mg/dL (0.1-1.0); Blood Urea Nitrogen 26 mg/dL (8-23); Calcium 8.6 mg/dL (8.6-10.4); Carbon Dioxide 22 mmol/L (22-30); Chloride 95 mmol/L (96-108); Globulin 3.7 gm/dL (2.2-3.7); Glomerular Filtration Rate 47; Glucose 152 mg/dL (70-105); Lactate Dehydrogenase 184 U/L (135-225); Phosphorous 4.1 mg/dL (2.5-4.5); Triglycerides 131 mg/dL (<150); Uric Acid 5.5 mg/dL (2.5-8.0)
[2022-09-29 14:10] LABS: Hematocrit 29.3 % (34.1-44.9); Hemoglobin 9.3 g/dL (11.2-15.7); Mean Cell Volume 88.5 fL (80.0-100.0); Mean Corpuscular HGB Conc 31.7 g/dL (31.0-36.0); Mean Platelet Volume 11.4 fL (8.8-12.5); Platelet Count 296 K/mcL (140-440); RBC 3.31 M/mcL (3.59-5.38); WBC 23.8 K/mcL (4.5-11.0)
[2022-09-29 14:40] LABS: Anisocytosis 1+ (None Seen); Band Neutrophils % 1 % (0-10); Lymphocytes % 6 % (15-49); Monocytes % (Manual) 4 % (1-12); Platelet Estimate NORMAL (Normal); RBC Morphology ABNORMAL (Normal); Segmented Neutrophils % 89 % (38-78)
--- NOTE | 2022-09-29 17:26 | General Surgery Progress Note ---
SUBJECTIVE Subjective Patient information: Note initiated : 09/29/22 at 5:20 pm Service Date, if different from initiated Date: [] Patient: Tracy Mae 82 y/o F admitted on 09/27/22 for fall/ cholecystitis. Chief Complaint: [] Principal diagnosis: acute cholecystitis with cholelithiasis Interval history: Patient is doing well with respect to her surgery. Her pain is controlled. She had some bleeding from her supraumbilical incision during the night and it required a suture ligation of the skin vessel. That has been adequate to stop the bleeding. LFTs show mild elevation but normal bilirubin. Hemoglobin has d ecreased to 9.3. White blood count is 23.8. She denies chest pain or shortness of breath but does state that she feels weak. Constitutional Vitals: Vital Signs Temp Pulse Resp BP Pulse Ox O2 Del Method O2 Flow Rate 98.0 F 87 19 107/47 98 Nasal Cannula 0.5 09/29/22 16:00 09/29/22 16:00 09/29/22 16:00 09/29/22 16:00 09/29/22 16:00 09/29/22 16:00 09/29/22 16:00 Period Temp Pulse Resp BP Sys/Archer Pulse Ox O2 Del Method O2 Flow Rate Last 24 Hr 97.2 F-99.1 F 59-87 15-19 103-137/47-86 90-100 Nasal Cannula- Room Air 0.5-2 Intake and Output 09/29/22 09/29/22 09/29/22 03:59 11:59 19:59 Intake Total 350 1768 50 Output Total 260 250 195 Balance 90 1518 -145 Weight 195 lb Patient Weight 09/30/22 03:59 Weight 195 lb Intake & Output: Intake & Output 09/29/22 09/29/22 09/29/22 03:59 11:59 19:59 Intake Total 350 1768 50 Output Total 260 250 195 Balance 90 1518 -145 Weight 195 lb Intake: IV 50 1050 50 Lactated Ringers 1,000 ml @ 75 1000 mls/hr IV .[id number] LIZET Rx#: [id number] Zosyn 3.375 gm In Dextrose 5% 50 50 50 in Water 50 ml @ 100 mls/hr IV Q6H LIZET Rx#:[id number] Oral 300 718 Output: Drainage 60 50 45 NORMA Drain 60 50 45 Void Amount 200 200 150 Other: Meal Breakfast Lunch Percent of Meal Consumed 100% 100% # Voids 1 Head Head exam: Present atraumatic, normal inspection and normocephalic Eye Eye exam: Present EOMI Pupils: Present normal accommodation ENT ENT exam: Present normal external ear exam and normal oropharynx Neck Neck exam: Present full ROM and normal inspection Respiratory Respiratory exam: Present normal respiratory exam and CTAB Cardiovascular Cardiovascular exam: Present normal rate and rhythm; Absent JVD GI/Abdominal GI/Abdominal exam: Present normal bowel sounds and soft Additional comments: Mild bruising of subcostal incision; bleeding from supraumbilical incision has ceased Extremities Exam Extremities exam: Present normal inspection and neurovascular intact Neurological Exam Neurological exam: Present alert, oriented X3 and reflexes normal; Absent motor sensory deficit A/P Assessment and plan (1) Acute gangrenous cholecystitis: Status: Acute (2) Postoperative hemorrhage of skin following non-dermatologic procedure: Status: Acute (3) Chronic obstructive pulmonary disease: Status: Chronic Qualifiers: COPD type: emphysema Emphysema type: centrilobular Qualified Code(s): J43.2 - Centrilobular emphysema (4) SARA on CPAP: Status: Chronic (5) MCFP (current) use of anticoagulants: Status: Chronic Plan Patient will continue antibiotics PT and OT will be ordered Time Spent With Patient Time: Total time spent is greater than 50% in coordination of care (as documented) at patient's floor/unit and/or counseling patient:
[2022-09-29] MEDS: SENNOSIDES 1 TABLET PO SCH (20:40)
[2022-09-29] MEDS: traZODone HCL 50 MG TABLET PO PRN (22:10)
[2022-09-30] MEDS: oxyCODONE IR 5 MG TABLET PO PRN (03:25)
[2022-09-30] MEDS: ONDANSETRON 4 MG/2 ML VIAL IV PRN ×3 (03:39→22:35)
[2022-09-30] MEDS: 0.9 % SODIUM CHLORIDE 10 ML SYRINGE IV SCH ×3 (05:34→20:06)
[2022-09-30] MEDS: PIPERACILLIN SODIUM/TAZOBACTAM 3.375 GM in DEXTROSE 5% IN WATER 50 ML IV SCH ×4 (05:34→23:56)
[2022-09-30] MEDS: LEVOTHYROXINE 50 MCG TABLET PO SCH (07:35)
[2022-09-30] MEDS: DOCUSATE SODIUM 100 MG CAPSULE PO SCH ×2 (08:38→20:06)
[2022-09-30] MEDS: ATENOLOL 50 MG TABLET PO SCH ×2 (08:46→20:05)
[2022-09-30] MEDS: LACTATED RINGERS 1,000 ML IV SCH ×2 (13:23→15:24)
--- NOTE | 2022-09-30 14:57 | General Surgery Progress Note ---
SUBJECTIVE Subjective Patient information: Note initiated : 09/30/22 at 2:56 pm Service Date, if different from initiated Date: [] Patient: Tracy Mae 82 y/o F admitted on 09/27/22 for fall/ cholecystitis. Chief Complaint: [] Principal diagnosis: acute cholecystitis with cholelithiasis Interval history: Patient feels better. She has less abdominal. She has had output of bilious drainage through her NORMA. Discussed this finding with her. We will continue to monitor over the weekend. She is tolerating diet without difficulty. Constitutional Vitals: Vital Signs Temp Pulse Resp BP Pulse Ox O2 Del Method O2 Flow Rate 97.4 F 60 20 110/60 96 Room Air 0.5 09/30/22 08:45 09/30/22 08:45 09/30/22 08:45 09/30/22 08:45 09/30/22 08:45 09/30/22 08:45 09/29/22 16:00 Period Temp Pulse Resp BP Sys/Archer Pulse Ox O2 Del Method O2 Flow Rate Last 24 Hr 97.0 F-98.0 F 60-87 16-20 107-124/46-72 95-98 Nasal Cannula- Room Air 0.5 Intake and Output 09/30/22 09/30/22 09/30/22 03:59 11:59 19:59 Intake Total 1350 1050 Output Total 290 20 Balance 1060 1030 Weight 193 lb 6 oz Intake & Output: Intake & Output 09/30/22 09/30/22 09/30/22 03:59 11:59 19:59 Intake Total 1350 1050 Output Total 290 20 Balance 1060 1030 Weight 193 lb 6 oz Intake: IV 1050 1050 Lactated Ringers 1,000 ml @ 75 1000 1000 mls/hr IV .[id number] LIZET Rx#: [id number] Zosyn 3.375 gm In Dextrose 5% 50 50 in Water 50 ml @ 100 mls/hr IV Q6H LIZET Rx#:[id number] Oral 300 Output: Drainage 40 20 NORMA Drain 40 20 Void Amount 250 Other: Urine Appearance Clear Urine Color Dark Yellow Urine Odor Strong Head Head exam: Present atraumatic, normal inspection and normocephalic Eye Eye exam: Present EOMI Pupils: Present normal accommodation ENT ENT exam: Present normal external ear exam and normal oropharynx Neck Neck exam: Present full ROM and normal inspection Respiratory Respiratory exam: Present normal respiratory exam and CTAB Cardiovascular Cardiovascular exam: Present normal rate and rhythm; Absent JVD GI/Abdominal GI/Abdominal exam: Present normal bowel sounds and soft Additional comments: Mild bruising of subcostal incision; bleeding from supraumbilical incision has ceased Extremities Exam Extremities exam: Present normal inspection and neurovascular intact Neurological Exam Neurological exam: Present alert, oriented X3 and reflexes normal; Absent motor sensory deficit A/P Assessment and plan (1) Acute gangrenous cholecystitis: Status: Acute (2) Chronic obstructive pulmonary disease: Status: Chronic Qualifiers: COPD type: emphysema Emphysema type: centrilobular Qualified Code(s): J43.2 - Centrilobular emphysema (3) Postoperative hemorrhage of skin following non-dermatologic procedure: Status: Acute (4) terminologist (current) use of anticoagulants: Status: Chronic Plan Check CBC and inpatient panel in the a.m. Will get CT of abdomen with oral contrast to prior to discharge Time Spent With Patient Time: Total time spent is greater than 50% in coordination of care (as documented) at patient's floor/unit and/or counseling patient:
[2022-09-30] MEDS: SENNOSIDES 1 TABLET PO SCH (20:06)
[2022-10-01] MEDS: PIPERACILLIN SODIUM/TAZOBACTAM 3.375 GM in DEXTROSE 5% IN WATER 50 ML IV SCH (05:08)
[2022-10-01] MEDS: 0.9 % SODIUM CHLORIDE 10 ML SYRINGE IV SCH ×3 (05:40→20:03)
[2022-10-01 06:46] LABS: Basophils # (Auto) 0.06 K/mcL (0.00-0.30); Basophils % (Auto) 0.3 % (0.0-2.0); Eosinophils # (Auto) 0.45 K/mcL (0.00-0.70); Eosinophils % (Auto) 2.5 % (0.0-7.0); Hematocrit 25.3 % (34.1-44.9); Hemoglobin 8.2 g/dL (11.2-15.7); Lymphocytes % (Auto) 23.4 % (15.5-49.0); Mean Cell Volume 86.6 fL (80.0-100.0); Mean Corpuscular HGB Conc 32.4 g/dL (31.0-36.0); Mean Platelet Volume 11.2 fL (8.8-12.5); Monocytes # (Auto) 1.75 K/mcL (0.10-0.90); Monocytes % (Auto) 9.7 % (1.0-12.0); Neutrophils % (Auto) 62.4 % (38.0-78.0); Platelet Count 301 K/mcL (140-440); RBC 2.92 M/mcL (3.59-5.38); Red Cell Distribution Width 15.1 % (11.5-14.5)
[2022-10-01 07:14] LABS: ALT/SGPT 21 U/L (<40); AST/SGOT 21 U/L (<32); Albumin 2.5 gm/dL (3.2-5.2); Albumin/Globulin Ratio 0.7 (1.0-2.3); Alkaline Phosphatase 103 U/L (39-117); Bilirubin,Direct 0.4 mg/dL (<0.3); Bilirubin,Total 0.6 mg/dL (0.1-1.0); Blood Urea Nitrogen 33 mg/dL (8-23); Calcium 8.4 mg/dL (8.6-10.4); Carbon Dioxide 24 mmol/L (22-30); Chloride 91 mmol/L (96-108); Globulin 3.4 gm/dL (2.2-3.7); Glomerular Filtration Rate 30; Glucose 126 mg/dL (70-105); Lactate Dehydrogenase 148 U/L (135-225); Phosphorous 3.4 mg/dL (2.5-4.5); Triglycerides 183 mg/dL (<150); Uric Acid 5.9 mg/dL (2.5-8.0)
[2022-10-01] MEDS: LEVOTHYROXINE 50 MCG TABLET PO SCH (07:42)
[2022-10-01] MEDS: ONDANSETRON 4 MG/2 ML VIAL IV PRN (07:46)
[2022-10-01] MEDS: DOCUSATE SODIUM 100 MG CAPSULE PO SCH ×2 (10:30→20:03)
[2022-10-01] MEDS: ATENOLOL 50 MG TABLET PO SCH ×2 (10:30→20:03)
[2022-10-01] MEDS: PIPERACILLIN SODIUM/TAZOBACTAM 2.25 GM in DEXTROSE 5% IN WATER 50 ML IV SCH ×3 (12:16→23:18)
[2022-10-01] MEDS: LACTATED RINGERS 1,000 ML IV SCH (12:17)
--- NOTE | 2022-10-01 13:51 | General Surgery Progress Note ---
SUBJECTIVE Subjective Patient information: Note initiated : 10/01/22 at 1:49 pm Service Date, if different from initiated Date: [] Patient: Tracy Mae 82 y/o F admitted on 09/27/22 for fall/ cholecystitis. Chief Complaint: [] Principal diagnosis: acute cholecystitis with cholelithiasis Interval history: Patient continues to improve. She is more alert and awake.. she denies nausea. She is passing flatus. White blood count is decreased to 18. Hemoglobin 8.2, hematocrit 25.3, potassium 3.6, BUN 33, creatinine 1.6. Constitutional Vitals: Vital Signs Temp Pulse Resp BP Pulse Ox O2 Del Method O2 Flow Rate 97.7 F 64 18 112/54 95 Room Air 0.5 10/01/22 12:00 10/01/22 12:00 10/01/22 12:00 10/01/22 12:00 10/01/22 12:00 10/01/22 12:00 09/29/22 16:00 Period Temp Pulse Resp BP Sys/Archer Pulse Ox O2 Del Method O2 Flow Rate Last 24 Hr 97.1 F-97.7 F 59-71 16-18 98-123/54-68 94-97 Room Air-Room Air Intake and Output 10/01/22 10/01/22 10/01/22 03:59 11:59 19:59 Intake Total 1450 1002 50 Output Total 500 Balance 950 1002 50 Weight 193 lb 9.6 oz Intake & Output: Intake & Output 10/01/22 10/01/22 10/01/22 03:59 11:59 19:59 Intake Total 1450 1002 50 Output Total 500 Balance 950 1002 50 Weight 193 lb 9.6 oz Intake: IV 1050 1002 50 Lactated Ringers 1,000 ml @ 50 1000 952 mls/hr IV .Q20H LIZET Rx#: [id number] Zosyn 2.25 gm In Dextrose 5% in 50 Water 50 ml @ 100 mls/hr IV Q6H LIZET Rx#:[id number] Zosyn 3.375 gm In Dextrose 5% 50 50 in Water 50 ml @ 100 mls/hr IV Q6H LIZET Rx#:[id number] Oral 400 Output: Drainage 200 NORMA Drain 200 Void Amount 300 Other: Meal Dinner Breakfast Percent of Meal Consumed 25% 50% Feeding Ability Independent Head Head exam: Present atraumatic, normal inspection and normocephalic Eye Eye exam: Present EOMI Pupils: Present normal accommodation ENT ENT exam: Present normal external ear exam and normal oropharynx Neck Neck exam: Present full ROM and normal inspection Respiratory Respiratory exam: Present normal respiratory exam and CTAB Cardiovascular Cardiovascular exam: Present normal rate and rhythm; Absent JVD GI/Abdominal GI/Abdominal exam: Present normal bowel sounds and soft Additional comments: Mild bruising of subcostal incision; bleeding from supraumbilical incision has ceased Extremities Exam Extremities exam: Present normal inspection and neurovascular intact Neurological Exam Neurological exam: Present alert, oriented X3 and reflexes normal; Absent motor sensory deficit A/P Assessment and plan (1) Acute gangrenous cholecystitis: Status: Acute (2) Chronic obstructive pulmonary disease: Status: Chronic Qualifiers: COPD type: emphysema Emphysema type: centrilobular Qualified Code(s): J43.2 - Centrilobular emphysema (3) Postoperative hemorrhage of skin following non-dermatologic procedure: Status: Acute (4) buttermaker (current) use of anticoagulants: Status: Chronic Plan Check CBC and inpatient panel in the a.m. Will get CT of abdomen with oral contrast to prior to discharge Time Spent With Patient Time: Total time spent is greater than 50% in coordination of care (as documented) at patient's floor/unit and/or counseling patient:
[2022-10-01] MEDS: FUROSEMIDE 20 MG TABLET PO SCH (14:37)
[2022-10-01] MEDS: ACETAMINOPHEN 1,000 MG/100 ML BAG IV PRN ×2 (15:51→21:50)
[2022-10-01] MEDS: SENNOSIDES 1 TABLET PO SCH (20:03)
[2022-10-01] MEDS: POLYETHYLENE GLYCOL 3350 17 GM PACKET PO SCH (20:03)
[2022-10-02] MEDS: PIPERACILLIN SODIUM/TAZOBACTAM 2.25 GM in DEXTROSE 5% IN WATER 50 ML IV SCH ×4 (05:11→23:09)
[2022-10-02] MEDS: 0.9 % SODIUM CHLORIDE 10 ML SYRINGE IV SCH ×4 (05:12→22:59)
[2022-10-02 06:28] LABS: Basophils # (Auto) 0.09 K/mcL (0.00-0.30); Basophils % (Auto) 0.5 % (0.0-2.0); Eosinophils # (Auto) 0.82 K/mcL (0.00-0.70); Eosinophils % (Auto) 4.8 % (0.0-7.0); Hematocrit 24.4 % (34.1-44.9); Hemoglobin 7.9 g/dL (11.2-15.7); Lymphocytes # (Auto) 3.99 K/mcL (1.50-4.80); Lymphocytes % (Auto) 23.2 % (15.5-49.0); Mean Cell Volume 86.5 fL (80.0-100.0); Mean Corpuscular HGB Conc 32.4 g/dL (31.0-36.0); Mean Platelet Volume 10.7 fL (8.8-12.5); Monocytes # (Auto) 1.44 K/mcL (0.10-0.90); Monocytes % (Auto) 8.4 % (1.0-12.0); Neutrophils % (Auto) 60.1 % (38.0-78.0); Platelet Count 326 K/mcL (140-440); RBC 2.82 M/mcL (3.59-5.38); WBC 17.2 K/mcL (4.5-11.0)
[2022-10-02 06:58] LABS: ALT/SGPT 21 U/L (<40); AST/SGOT 21 U/L (<32); Albumin 2.5 gm/dL (3.2-5.2); Albumin/Globulin Ratio 0.8 (1.0-2.3); Alkaline Phosphatase 109 U/L (39-117); Bilirubin,Direct 0.3 mg/dL (<0.3); Bilirubin,Total 0.7 mg/dL (0.1-1.0); Blood Urea Nitrogen 30 mg/dL (8-23); Calcium 8.4 mg/dL (8.6-10.4); Carbon Dioxide 26 mmol/L (22-30); Chloride 95 mmol/L (96-108); Globulin 3.2 gm/dL (2.2-3.7); Glomerular Filtration Rate 30; Glucose 99 mg/dL (70-105); Lactate Dehydrogenase 156 U/L (135-225); Phosphorous 3.2 mg/dL (2.5-4.5); Triglycerides 154 mg/dL (<150)
[2022-10-02] MEDS: LEVOTHYROXINE 25 MCG TABLET PO SCH (08:14)
[2022-10-02] MEDS: ATENOLOL 50 MG TABLET PO SCH ×2 (08:15→20:10)
[2022-10-02] MEDS: POLYETHYLENE GLYCOL 3350 17 GM PACKET PO SCH ×2 (08:16→20:11)
[2022-10-02] MEDS: FUROSEMIDE 20 MG TABLET PO SCH (08:16)
[2022-10-02] MEDS: DOCUSATE SODIUM 100 MG CAPSULE PO SCH ×2 (08:16→20:11)
[2022-10-02] MEDS ORDERED: FUROSEMIDE 20 MG TABLET PO SCH (09:00)
[2022-10-02] MEDS: ACETAMINOPHEN 1,000 MG/100 ML BAG IV PRN ×2 (11:21→17:04)
--- NOTE | 2022-10-02 14:52 | General Surgery Progress Note ---
SUBJECTIVE Subjective Patient information: Note initiated : 10/02/22 at 2:50 pm Service Date, if different from initiated Date: [] Patient: Tracy Mae 82 y/o F admitted on 09/27/22 for fall/ cholecystitis. Chief Complaint: [] Principal diagnosis: acute cholecystitis with cholelithiasis Interval history: Patient is doing well. She is afebrile. Her white count has decreased to 17,000 but her hemoglobin continues to drift down. Output through her subhepatic drain is definitely bilious and I am concerned about a possible duodenal leak from erosion of the large stone into the duodenal bulb. This was not clinically apparent at the time of surgery and was suspected but I could not confirm it. White blood count 17.2, hemoglobin 7.9, hematocrit 24.4, potassium 3.2, BUN 30, creatinine 1.6. LFTs are normal. Constitutional Vitals: Vital Signs Temp Pulse Resp BP Pulse Ox O2 Del Method O2 Flow Rate 97.5 F 64 20 117/67 96 Room Air 0.5 10/02/22 11:33 10/02/22 11:33 10/02/22 11:33 10/02/22 11:33 10/02/22 11:33 10/02/22 11:33 09/29/22 16:00 Period Temp Pulse Resp BP Sys/Archer Pulse Ox O2 Del Method O2 Flow Rate Last 24 Hr 97.2 F-98.5 F 58-79 16-20 89-136/47-84 96-100 CPAP-Room Air Intake and Output 10/02/22 10/02/22 10/02/22 03:59 11:59 19:59 Intake Total 150 350 150 Output Total 2805 80 Balance 150 -2455 70 Weight 193 lb 3.2 oz Intake & Output: Intake & Output 10/02/22 10/02/22 10/02/22 03:59 11:59 19:59 Intake Total 150 350 150 Output Total 2805 80 Balance 150 -2455 70 Weight 193 lb 3.2 oz Intake: IV 150 50 150 Zosyn 2.25 gm In Dextrose 5% in 50 50 50 Water 50 ml @ 100 mls/hr IV Q6H LIZET Rx#:[id number] Oral 300 Output: Drainage 155 NORMA Drain 155 Drainage 50 80 NORMA Drain 50 80 Void Amount 2600 Other: Urine Appearance Clear Urine Color Yellow Head Head exam: Present atraumatic, normal inspection and normocephalic Eye Eye exam: Present EOMI Pupils: Present normal accommodation ENT ENT exam: Present normal external ear exam and normal oropharynx Neck Neck exam: Present full ROM and normal inspection Respiratory Respiratory exam: Present normal respiratory exam and CTAB Cardiovascular Cardiovascular exam: Present normal rate and rhythm; Absent JVD GI/Abdominal GI/Abdominal exam: Present normal bowel sounds and soft Additional comments: Mild bruising of subcostal incision; bleeding from supraumbilical incision has ceased Extremities Exam Extremities exam: Present normal inspection and neurovascular intact Neurological Exam Neurological exam: Present alert, oriented X3 and reflexes normal; Absent motor sensory deficit A/P Assessment and plan (1) Acute gangrenous cholecystitis: Status: Acute (2) Postoperative hemorrhage of skin following non-dermatologic procedure: Status: Acute (3) Chronic obstructive pulmonary disease: Status: Chronic Qualifiers: COPD type: emphysema Emphysema type: centrilobular Qualified Code(s): J43.2 - Centrilobular emphysema (4) Cholecystitis, acute with cholelithiasis: Status: Acute (5) SARA on CPAP: Status: Chronic (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
[2022-10-02] MEDS ORDERED: POTASSIUM CHLORIDE 40 MEQ in DEXTROSE 5% IN WATER 500 ML IV SCH (15:26)
--- NOTE | 2022-10-02 15:52 | XRay Report ---
CLINICAL INFORMATION: Status post cholecystectomy. Outer quadrant pain. Evaluate for duodenal leak. COMPARISON: None. TECHNIQUE: Gastrografin was ingested under fluoroscopic observation. Spot films were obtained of the esophagus, stomach and duodenum. Total fluoroscopy time: One minute 48 seconds FINDINGS: The esophagus is normal in contour, caliber, and motility. No hiatal hernia or reflux could be induced. The stomach is normal size with unremarkable fold pattern. Prompt gastric emptying into a normal appearing duodenum is appreciated. IMPRESSION: Normal Upper G.I. no evidence of duodenal leak. Interpreted and Authenticated by: Kunal May 10/02/22
[2022-10-02] MEDS ORDERED: DIATRIZOATE MEGLU/DIATRIZO SOD 120 ML BOTTLE PO ONE (16:01)
[2022-10-02] MEDS: SENNOSIDES 1 TABLET PO SCH (20:11)
[2022-10-02] MEDS: ONDANSETRON 4 MG/2 ML VIAL IV PRN (22:59)
[2022-10-02] MEDS: traZODone HCL 50 MG TABLET PO PRN (23:13)
[2022-10-03] MEDS: ACETAMINOPHEN 1,000 MG/100 ML BAG IV PRN ×2 (04:55→11:54)
[2022-10-03] MEDS: 0.9 % SODIUM CHLORIDE 10 ML SYRINGE IV SCH ×4 (04:55→21:13)
[2022-10-03] MEDS: PIPERACILLIN SODIUM/TAZOBACTAM 2.25 GM in DEXTROSE 5% IN WATER 50 ML IV SCH ×3 (05:23→17:41)
[2022-10-03 06:40] LABS: Basophils # (Auto) 0.09 K/mcL (0.00-0.30); Basophils % (Auto) 0.6 % (0.0-2.0); Eosinophils # (Auto) 0.83 K/mcL (0.00-0.70); Eosinophils % (Auto) 5.1 % (0.0-7.0); Hematocrit 25.2 % (34.1-44.9); Hemoglobin 8.2 g/dL (11.2-15.7); Lymphocytes # (Auto) 4.09 K/mcL (1.50-4.80); Lymphocytes % (Auto) 25.1 % (15.5-49.0); Mean Cell Volume 87.8 fL (80.0-100.0); Mean Corpuscular HGB Conc 32.5 g/dL (31.0-36.0); Mean Platelet Volume 10.5 fL (8.8-12.5); Monocytes # (Auto) 1.29 K/mcL (0.10-0.90); Monocytes % (Auto) 7.9 % (1.0-12.0); Platelet Count 380 K/mcL (140-440); RBC 2.87 M/mcL (3.59-5.38); Red Cell Distribution Width 15.9 % (11.5-14.5); WBC 16.3 K/mcL (4.5-11.0)
[2022-10-03 07:23] LABS: ALT/SGPT 26 U/L (<40); AST/SGOT 29 U/L (<32); Albumin 2.4 gm/dL (3.2-5.2); Albumin/Globulin Ratio 0.8 (1.0-2.3); Alkaline Phosphatase 112 U/L (39-117); Bilirubin,Direct 0.3 mg/dL (<0.3); Bilirubin,Total 0.7 mg/dL (0.1-1.0); Blood Urea Nitrogen 25 mg/dL (8-23); Calcium 8.3 mg/dL (8.6-10.4); Carbon Dioxide 26 mmol/L (22-30); Chloride 99 mmol/L (96-108); Globulin 3.2 gm/dL (2.2-3.7); Glomerular Filtration Rate 32; Glucose 77 mg/dL (70-105); Lactate Dehydrogenase 214 U/L (135-225); Triglycerides 155 mg/dL (<150); Uric Acid 5.9 mg/dL (2.5-8.0)
[2022-10-03] MEDS: LEVOTHYROXINE 50 MCG TABLET PO SCH (08:13)
[2022-10-03] MEDS: FUROSEMIDE 20 MG TABLET PO SCH (08:51)
[2022-10-03] MEDS: DOCUSATE SODIUM 100 MG CAPSULE PO SCH ×2 (08:52→20:28)
[2022-10-03] MEDS: ATENOLOL 50 MG TABLET PO SCH ×2 (08:52→21:13)
[2022-10-03] MEDS: POLYETHYLENE GLYCOL 3350 17 GM PACKET PO SCH ×2 (08:52→20:28)
--- NOTE | 2022-10-03 17:20 | General Surgery Progress Note ---
SUBJECTIVE Subjective Patient information: Note initiated : 10/03/22 at 5:16 pm Service Date, if different from initiated Date: [] Patient: Tracy Mae 82 y/o F admitted on 09/27/22 for fall/ cholecystitis. Chief Complaint: [] Principal diagnosis: acute cholecystitis with cholelithiasis Interval history: Patient continues to do well. Her only problem at this time is increased bilious output through her drain. This is probably from an accessory duct since the cystic duct was stapled with 5 joey. This was discussed with the patient and her daughter. She will need to have an ERCP and probable stent placement but this can be done as an outpatient since the bilious drainage is adequately controlled with the drain. Constitutional Vitals: Vital Signs Temp Pulse Resp BP Pulse Ox O2 Del Method O2 Flow Rate 97.5 F 59 L 18 102/50 98 Room Air 0.5 10/03/22 16:00 10/03/22 16:00 10/03/22 16:00 10/03/22 16:00 10/03/22 16:00 10/03/22 16:00 09/29/22 16:00 Period Temp Pulse Resp BP Sys/Archer Pulse Ox O2 Del Method O2 Flow Rate Last 24 Hr 96.8 F-97.5 F 59-64 16-18 102-122/50-77 98-100 CPAP-Room Air Intake and Output 10/03/22 10/03/22 10/03/22 03:59 11:59 19:59 Intake Total 1800 390 150 Output Total 3 606 61 Balance 1797 -216 89 Intake & Output: Intake & Output 10/03/22 10/03/22 10/03/22 03:59 11:59 19:59 Intake Total 1800 390 150 Output Total 3 606 61 Balance 1797 -216 89 Intake: IV 620 150 150 Zosyn 2.25 gm In Dextrose 5% in 100 50 50 Water 50 ml @ 100 mls/hr IV Q6H LIZET Rx#:[id number] Potassium Chloride 40 Meq In 520 Dextrose 5% in Water 500 ml @ 130 mls/hr IV ONCE LIZET Rx#: [id number] Oral 1180 240 Output: Drainage 60 NORMA Drain 60 Drainage 145 60 NORMA Drain 145 60 # of times incontinent of urine 3 1 1 Urine/Stool Mix 400 Other: Meal Dinner Breakfast Percent of Meal Consumed 100% 100% Feeding Ability Independent Urine Color Yellow Urine Odor Strong Stool Size Small Stool Color Brown Yellow Stool Consistency Loose Watery Loose # Voids 1 # Bowel Movements 1 # of times incontinent of 4 Bowels Head Head exam: Present atraumatic, normal inspection and normocephalic Eye Eye exam: Present EOMI Pupils: Present normal accommodation ENT ENT exam: Present normal external ear exam and normal oropharynx Neck Neck exam: Present full ROM and normal inspection Respiratory Respiratory exam: Present normal respiratory exam and CTAB Cardiovascular Cardiovascular exam: Present normal rate and rhythm; Absent JVD GI/Abdominal GI/Abdominal exam: Present normal bowel sounds and soft Additional comments: Mild bruising of subcostal incision; Extremities Exam Extremities exam: Present normal inspection and neurovascular intact Neurological Exam Neurological exam: Present alert, oriented X3 and reflexes normal; Absent motor sensory deficit A/P Assessment and plan (1) Postoperative hemorrhage of skin following non-dermatologic procedure: Status: Acute (2) Acute gangrenous cholecystitis: Status: Acute (3) Postprocedural leakage from bile duct: Status: Acute (4) Chronic obstructive pulmonary disease: Status: Chronic Qualifiers: COPD type: emphysema Emphysema type: centrilobular Qualified Code(s): J43.2 - Centrilobular emphysema Plan Patient is clinically stable but improved. She will need to have nursing care facility and rehab treatment for a month or so prior to being discharged home. I will contact Verna Gramajo tomorrow to try to arrange ERCP with stent placement when Dr. Moore returns next week. Time Spent With Patient Time: Total time spent is greater than 50% in coordination of care (as documented) at patient's floor/unit and/or counseling patient:
[2022-10-03] MEDS: SENNOSIDES 1 TABLET PO SCH (20:29)
[2022-10-04] MEDS: PIPERACILLIN SODIUM/TAZOBACTAM 2.25 GM in DEXTROSE 5% IN WATER 50 ML IV SCH ×4 (01:12→12:36)
[2022-10-04] MEDS: ACETAMINOPHEN 1,000 MG/100 ML BAG IV PRN (01:12)
[2022-10-04] MEDS: 0.9 % SODIUM CHLORIDE 10 ML SYRINGE IV SCH ×2 (06:04→13:25)
[2022-10-04] MEDS: LEVOTHYROXINE 25 MCG TABLET PO SCH (07:21)
[2022-10-04] MEDS: POLYETHYLENE GLYCOL 3350 17 GM PACKET PO SCH ×2 (09:00→21:38)
[2022-10-04] MEDS: FUROSEMIDE 20 MG TABLET PO SCH (09:00)
[2022-10-04] MEDS: ATENOLOL 50 MG TABLET PO SCH ×2 (09:00→21:38)
[2022-10-04] MEDS: DOCUSATE SODIUM 100 MG CAPSULE PO SCH ×2 (09:00→21:38)
--- NOTE | 2022-10-04 13:42 | General Surgery Progress Note ---
SUBJECTIVE Subjective Patient information: Note initiated : 10/04/22 at 12:39 pm Service Date, if different from initiated Date: [] Patient: Tracy Mae 82 y/o F admitted on 09/27/22 for fall/ cholecystitis. Chief Complaint: [] Principal diagnosis: acute cholecystitis with cholelithiasis Interval history: Patient is doing well. She states that she feels much better. She has been afebrile. She is tolerating diet without difficulty. The bilious drainage is thinner and has decreased in volume. Patient is stable for transfer to shelter facility whenever bed is available Constitutional Vitals: Vital Signs Temp Pulse Resp BP Pulse Ox O2 Del Method O2 Flow Rate 97.5 F 64 16 103/52 94 Room Air 0.5 10/04/22 12:00 10/04/22 12:00 10/04/22 12:00 10/04/22 12:00 10/04/22 12:00 10/04/22 12:00 09/29/22 16:00 Period Temp Pulse Resp BP Sys/Archer Pulse Ox O2 Del Method O2 Flow Rate Last 24 Hr 97.3 F-98.2 F 59-66 12-18 98-126/47-69 94-98 Room Air-Room Air, CPAP Intake and Output 10/04/22 10/04/22 10/04/22 03:59 11:59 19:59 Intake Total 300 50 300 Output Total 1070 30 Balance -770 20 300 Intake & Output: Intake & Output 10/04/22 10/04/22 10/04/22 03:59 11:59 19:59 Intake Total 300 50 300 Output Total 1070 30 Balance -770 20 300 Intake: IV 150 50 Zosyn 2.25 gm In Dextrose 5% in 50 50 Water 50 ml @ 100 mls/hr IV Q6H LIZET Rx#:[id number] Oral 150 300 Output: Drainage 45 NORMA Drain 45 Drainage 0 30 NORMA Drain 0 30 Void Amount 750 # of times incontinent of urine 0 Urine/Stool Mix 275 Other: Meal Breakfast Percent of Meal Consumed 80 Urine Appearance Clear Urine Color Light [place] Stool Size Smear Stool Color Brown Brown Stool Consistency Liquid Watery # Voids 0 # Bowel Movements 1 Head Head exam: Present atraumatic, normal inspection and normocephalic Eye Eye exam: Present EOMI Pupils: Present normal accommodation ENT ENT exam: Present normal external ear exam and normal oropharynx Neck Neck exam: Present full ROM and normal inspection Respiratory Respiratory exam: Present normal respiratory exam and CTAB Cardiovascular Cardiovascular exam: Present normal rate and rhythm; Absent JVD GI/Abdominal GI/Abdominal exam: Present normal bowel sounds and soft Additional comments: Mild bruising of subcostal incision; Extremities Exam Extremities exam: Present normal inspection and neurovascular intact Neurological Exam Neurological exam: Present alert, oriented X3 and reflexes normal; Absent motor sensory deficit A/P Assessment and plan (1) Postprocedural leakage from bile duct: Status: Acute (2) Postoperative hemorrhage of skin following non-dermatologic procedure: Status: Acute (3) Acute gangrenous cholecystitis: Status: Acute (4) Chronic obstructive pulmonary disease: Status: Chronic Qualifiers: COPD type: emphysema Emphysema type: centrilobular Qualified Code(s): J43.2 - Centrilobular emphysema Plan Discontinue IV fluids Switch antibiotics to Augmentin twice daily Stable for discharge when a SNF bed is available Time Spent With Patient Time: Total time spent is greater than 50% in coordination of care (as documented) at patient's floor/unit and/or counseling patient:
[2022-10-04] MEDS: AMOXICILLIN/POTASSIUM CLAV 875 MG TABLET PO SCH (17:32)
[2022-10-04] MEDS: SENNOSIDES 1 TABLET PO SCH (21:38)
[2022-10-04] MEDS: oxyCODONE IR 5 MG TABLET PO PRN (22:00)
[2022-10-05] MEDS: 0.9 % SODIUM CHLORIDE 10 ML SYRINGE IV SCH ×2 (00:05→06:22)
[2022-10-05] MEDS: oxyCODONE IR 5 MG TABLET PO PRN (02:47)
[2022-10-05] MEDS: LEVOTHYROXINE 50 MCG TABLET PO SCH (07:05)
[2022-10-05] MEDS: AMOXICILLIN/POTASSIUM CLAV 875 MG TABLET PO SCH (08:34)
[2022-10-05] MEDS: FUROSEMIDE 20 MG TABLET PO SCH (08:34)
[2022-10-05] MEDS: DOCUSATE SODIUM 100 MG CAPSULE PO SCH (08:38)
[2022-10-05] MEDS: ATENOLOL 50 MG TABLET PO SCH (08:38)
[2022-10-05] MEDS: POLYETHYLENE GLYCOL 3350 17 GM PACKET PO SCH (08:38)
--- NOTE | 2022-10-05 10:37 | Discharge Summary ---
Discharge Provider Provider IMPORTANT FOLLOW-UP INFORMATION FOR PCP: Patient information: Note initiated : 10/05/22 at 10:36 am Service Date, if different from initiated Date: [] Patient: Tracy Mae 82 y/o F admitted on 09/27/22 for fall/ cholecystitis. Chief Complaint: [] Date of admission: 09/27/22 20:00 Discharge date: 10/05/22 Primary care physician: Tatiana Feliciano Admitting clinician: Alice Strange Attending physician on admission: Alice Strange Consults: 09/27/22 Consult to Physician [CONS] Stat Comment: Consulting Provider: Alice Strange Reason For Exam: Physician to Consult Attending physician on discharge: Alice Strange Discharging clinician: Alice Strange COURSE Hospital Course Hospital course: 82-year-old female with about a 10-day history of abdominal pain nausea with weakness fever sweats and syncopal episodes. Her pain became worse and she keysha me weaker. This prompted her to come to the emergency room where she was found to have a tender abdomen with guarding and rebound. White count was normal but upper abdominal CT showed cholecystitis with thickened stone in the neck of the gallbladder. She was admitted and started on antibiotics. On 28 September she underwent open cholecystectomy with findings of acute severe gangrenous cholecystitis with perforation. There was a large stone perforating through the infundibulum of the gallbladder and into the wall of the duodenum. In retrospect there was free air in the gallbladder that was not originally mentioned. Cholecystectomy was done and the duodenum was inspected. It appeared to be structurally intact without any evidence of for fistula formation.. Cystic duct was easily identified was clipped with clips distally and close to infundibulum of the gallbladder. Drain was placed in the subhepatic space. Patient tolerated procedure well. She was noted to have bilious drainage in the NORMA on the second postoperative day. There was some concern that she may have had a small duodenal fistula so an upper GI was done and there was no leak from the duodenum. The wall of the duodenal bulb second and third portions of the duodenum were intact. The leak is felt to be due to a probable accessory duct. She has been treated and is doing well. She was on apixaban at the time of the emergency surgery and had some bleeding from her incision. This was primarily in the skin and was controlled with Prolene suture. Her hemoglobin drifted down to the 8 range. It has remained in that range. She seems to tolerate it well so she was transfused. She has not been restarted on her apixaban.. The apixaban is given for atrial fibrillation with a fast ventricular response however she has a pacemaker and her heart rate is controlled in the 60-70 range. The probability of her developing blood clot with embolus is minimal based on her stable heart rate which is overridden by her pacemaker. She is clinically stable at this time and is tolerating. Plans will be made for her to be seen as an outpatient by Verna Gramajo and hopefully she will be able to get ERCP performed next week with stenting. This will controlled her biliary leak and the accessory ducts should close off. Patient will be seen in the office in 2 weeks. Discharge diagnosis: Acute gangrenous cholecystitis Secondary discharge diagnosis: Gallbladder perforation with erosion into the duodenum bulb without fistula Postprocedural leakage from bile duct Postoperative hemorrhage and skin following Dermatologic procedure Chronic obstructive lung disease Obstructive sleep apnea Chronic kidney disease. Reason for admission: Acute cholecystitis with cholelithiasis Procedures: Open cholecystectomy with drainage Pertinent studies/significant findings: Upper GI with small bowel follow-through CT of abdomen and pelvis with contrast Complications: Cutaneous bleeding due to apixaban Time Spent with Patient Time attestation: Total time spent providing and/or coordinating discharge services: Time spent: Greater than 30 minutes Physical Examination Vital Signs Vital signs: Temp Pulse Resp BP Pulse Ox O2 Del Method O2 Flow Rate 97.7 F 61 20 98/77 92 Room Air 0.5 10/05/22 07:57 10/05/22 07:57 10/05/22 07:57 10/05/22 07:57 10/05/22 07:57 10/05/22 07:57 09/29/22 16:00 General physical appearance General physical exam: well developed, well nourished, moderate distress, moderate pain, chronically ill and obese Eyes Eye exam: PERRL and normal ocular movement; negative icteric ENT ENT exam: normal mucosa Head Head exam IM: Present atraumatic, normal inspection and normocephalic Neck Neck exam: no masses, no bruits, trachea midline, no lymphadenopathy and no venous distension Cardiovascular Cardiovascular exam IM: Present +S1 and +S2; Absent irregular rhythm or JVD Respiratory Respiratory exam: normal expansion, normal respiratory effort and clear to auscu ltation Abdomen Abdomen: Present tender (Mild tenderness of right subcostal incision) Integumentary Integumentary: Present no rash, no growths and no abnormal pigmentation Neurologic Neurologic: Present normal coordination and normal sensation Musculoskeletal Musculoskeletal: Present other (Gait and stance not tested due to weakness) Psychiatric Psychiatric: Present oriented to time, oriented to person, oriented to place, speech is normal and memory intact Discharge Plan Patient/Caregiver Discharge Instructions Activity: increase activity as tolerated Diet: Regular Diet and Low Fat Prescriptions: Discontinued Eliquis 5 mg tablet 5 mg PO BID No Action atenolol 100 mg tablet 100 mg PO BID potassium chloride 20 mEq tablet extended release 20 meq PO QDAY levothyroxine 50 mcg tablet 50 mcg PO Q48 Rx Instructions: ALTERNATES 50 MCG WITH 75 MCG. TAKES 50MCG ON MON, , SAT. TAKES 75 MCG ON MON,,,FR[place] omega-3 fatty acids [Fish Oil Concentrate] 1,000 mg capsule 1,000 mg PO QDAY multivitamin Tablet 1 tab PO QDAY magnesium oxide 400 mg magnesium tablet 400 mg PO QDAY furosemide 20 mg tablet 40 mg PO QDAY levothyroxine 75 mcg Tablet 75 mcg PO Q48H Rx Instructions: ALTERNATES 50 MCG WITH 75 MCG. TAKES 50MCG ON , SAT. TAKES 75 MCG ON MON,,FR[place] spironolactone 25 mg Tablet 25 mg PO QDAY nitroglycerin 0.4 mg Tablet, Sublingual 0.4 mg SUBLINGUAL Q5M PRN (Reason: Chest Pain) Rx Instructions: do not exceed 3 doses per episode ezetimibe [Zetia] 10 mg Tablet 10 mg PO HS CholestOff Complete 450 tab PO QDAY cholecalciferol (vitamin D3) 1,000 unit PO QDAY Prescription drug monitoring program results: PDMP not reviewed Follow Up Plan Follow up with: Alice Strange MD [Physician] - 10/13/22 10:30 am Patient Disposition: Home, Self-Care Assessment: Patient is clinically improved she still has significant bilious leak Plan of Treatment: Evaluation and GI for ERCP with stenting next week Prognosis: Good Rehab Potential: Good I certify that the patient requires SNF services: Yes Overall status at discharge: patient is progressing back to baseline Discharge Orders: Discharge Order (Routine); Ordered 10/05/22 Ordered By: Alice Strange Pending Pending Pending: Resuscitation Status Resuscitate (Full Code) Diet Regular Diet Start MonOct 03 1321 Amoxicillin/Clavulanate Potassium (Amoxicillin/Potassium Clav 875 Mg Tablet) [facility] Protocol Last Admin: 10/05/22 08:34 Dose: 875 mg Documented By: Admin: 10/04/22 17:32 Dose: 875 mg Documented By: ROGER Atenolol (Atenolol 50 Mg Tablet) 100 mg PO BID [facility] Last Admin: 10/05/22 08:38 Dose: Not Given Documented By: Admin: 10/04/22 21:38 Dose: 100 mg Documented By: Admin: 10/04/22 09:00 Dose: 100 mg Documented By: Admin: 10/03/22 21:13 Dose: 100 mg Documented By: Admin: 10/03/22 08:52 Dose: 100 mg Documented By: Admin: 10/02/22 20:10 Dose: 100 mg Documented By: Admin: 10/02/22 08:15 Dose: 100 mg Documented By: Admin: 10/01/22 20:03 Dose: 100 mg Documented By: Admin: 10/01/22 10:30 Dose: 100 mg Documented By: Admin: 09/30/22 20:05 Dose: 100 mg Documented By: Admin: 09/30/22 08:46 Dose: 100 mg Documented By: Admin: 09/29/22 20:40 Dose: 100 mg Documented By: Admin: 09/29/22 11:37 Dose: Not Given Documented By: Admin: 09/28/22 20:35 Dose: 100 mg Documented By: Admin: 09/28/22 12:16 Dose: Not Given Documented By: Admin: 09/27/22 22:02 Dose: 100 mg Documented By: NEDA Docusate Sodium (Docusate Sodium 100 Mg Capsule) 100 mg PO BID [facility] Last Admin: 10/05/22 08:38 Dose: Not Given Documented By: Admin: 10/04/22 21:38 Dose: Not Given Documented By: Admin: 10/04/22 09:00 Dose: 100 mg Documented By: Admin: 10/03/22 20:28 Dose: Not Given Documented By: Admin: 10/03/22 08:52 Dose: Not Given Documented By: Admin: 10/02/22 20:11 Dose: Not Given Documented By: Admin: 10/02/22 08:16 Dose: 100 mg Documented By: Admin: 10/01/22 20:03 Dose: 100 mg Documented By: Admin: 10/01/22 10:30 Dose: 100 mg Documented By: Admin: 09/30/22 20:06 Dose: 100 mg Documented By: Admin: 09/30/22 08:38 Dose: 100 mg Documented By: Admin: 09/29/22 20:40 Dose: Not Given Documented By: Admin: 09/29/22 08:43 Dose: 100 mg Documented By: Admin: 09/28/22 20:35 Dose: 100 mg Documented By: Admin: 09/28/22 08:28 Dose: Not Given Documented By: Admin: 09/27/22 22:02 Dose: 100 mg Documented By: NEDA Furosemide (Furosemide 20 Mg Tablet) 40 mg PO QDAY [facility] Last Admin: 10/05/22 08:34 Dose: 40 mg Documented By: Admin: 10/04/22 09:00 Dose: 40 mg Documented By: Admin: 10/03/22 08:51 Dose: 40 mg Documented By: Admin: 10/02/22 08:16 Dose: 40 mg Documented By: Admin: 10/01/22 14:37 Dose: 40 mg Documented By: ELIZABETH Hydromorphone HCl (Hydromorphone 1 Mg/Ml Syringe) 1 mg IV Q2HP PRN; Protocol PRN Reason: Per Pain Protocol Last Admin: 09/29/22 23:51 Dose: 1 mg Documented By: DEMETRIO Acetaminophen (Ofirmev) 1,000 mg in 100 mls @ 200 mls/hr IV Q6HP PRN; Protocol PRN Reason: PAIN/FEVER > 101 Last Infusion: 10/04/22 02:15 Dose: 0 mls/hr Documented By: Admin: 10/04/22 01:12 Dose: 200 mls/hr Documented By: Infusion: 10/03/22 12:48 Dose: 0 mls/hr Documented By: Admin: 10/03/22 11:54 Dose: 200 mls/hr Documented By: Infusion: 10/03/22 05:27 Dose: 0 mls/hr Documented By: Admin: 10/03/22 04:55 Dose: 200 mls/hr Documented By: Infusion: 10/02/22 17:46 Dose: 0 mls/hr Documented By: Admin: 10/02/22 17:04 Dose: 200 mls/hr Documented By: Infusion: 10/02/22 12:01 Dose: 0 mls/hr Documented By: Admin: 10/02/22 11:21 Dose: 200 mls/hr Documented By: Infusion: 10/01/22 22:29 Dose: 0 mls/hr Documented By: Admin: 10/01/22 21:50 Dose: 200 mls/hr Documented By: Infusion: 10/01/22 16:31 Dose: 0 mls/hr Documented By: Admin: 10/01/22 15:51 Dose: 200 mls/hr Documented By: ELIZABETH Levothyroxine Sodium (Levothyroxine 25 Mcg Tablet) 25 mcg PO Q48H [facility] Last Admin: 10/04/22 07:21 Dose: 25 mcg Documented By: Admin: 10/02/22 08:14 Dose: 25 mcg Documented By: CHANDA Levothyroxine Sodium (Levothyroxine 50 Mcg Tablet) 50 mcg PO Q48H [facility] Last Admin: 10/05/22 07:05 Dose: 50 mcg Documented By: Admin: 10/03/22 08:13 Dose: 50 mcg Documented By: ANALI Ondansetron HCl (Ondansetron 4 Mg/2 Ml Vial) 4 mg IV Q6HP PRN PRN Reason: Nausea And Vomiting Last Admin: 10/02/22 22:59 Dose: 4 mg Documented By: Admin: 10/01/22 07:46 Dose: 4 mg Documented By: Admin: 09/30/22 22:35 Dose: 4 mg Documented By: Admin: 09/30/22 15:23 Dose: 4 mg Documented By: Admin: 09/30/22 03:39 Dose: 4 mg Documented By: DEMETRIO Oxycodone HCl (Oxycodone Ir 5 Mg Tablet) 10 mg PO Q4HP PRN; Protocol PRN Reason: Per Pain Protocol Last Admin: 10/05/22 02:47 Dose: 5 mg Documented By: Admin: 10/04/22 22:00 Dose: 10 mg Documented By: Admin: 09/30/22 03:25 Dose: 10 mg Documented By: Admin: 09/29/22 20:40 Dose: 10 mg Documented By: Admin: 09/29/22 04:54 Dose: 10 mg Documented By: Admin: 09/28/22 19:32 Dose: 10 mg Documented By: Admin: 09/28/22 04:34 Dose: 10 mg Documented By: JERBry Admin: 09/27/22 23:30 Dose: 10 mg Documented By: NEDA Polyethylene Glycol (Polyethylene Glycol 3350 17 Gm Packet) 17 gm PO BID [facility] Admin: 10/05/22 08:38 Dose: Not Given Documented By: Admin: 10/04/22 21:38 Dose: Not Given Documented By: Admin: 10/04/22 09:00 Dose: 17 gm Documented By: Admin: 10/03/22 20:28 Dose: Not Given Documented By: Admin: 10/03/22 08:52 Dose: Not Given Documented By: Admin: 10/02/22 20:11 Dose: Not Given Documented By: Admin: 10/02/22 08:16 Dose: 17 gm Documented By: Admin: 10/01/22 20:03 Dose: 17 gm Documented By: MAYNOR Senna (Sennosides 1 Tablet) 2 tab PO HS [facility] Last Admin: 10/04/22 21:38 Dose: Not Given Documented By: Admin: 10/03/22 20:29 Dose: Not Given Documented By: Admin: 10/02/22 20:11 Dose: Not Given Documented By: Admin: 10/01/22 20:03 Dose: 2 tab Documented By: Admin: 09/30/22 20:06 Dose: 2 tab Documented By: Admin: 09/29/22 20:40 Dose: 2 tab Documented By: Admin: 09/28/22 19:25 Dose: Not Given Documented By: Admin: 09/27/22 22:02 Dose: 2 tab Documented By: NEDA Sodium Chloride (0.9 % Sodium Chloride 10 Ml Syringe) 10 ml IV Q8 [facility] Admin: 10/05/22 06:22 Dose: Not Given Documented By: [facility] Admin: 10/05/22 00:05 Dose: Not Given Documented By: Admin: 10/04/22 13:25 Dose: Not Given Documented By: Admin: 10/04/22 06:04 Dose: 10 ml Documented By: Admin: 10/03/22 21:13 Dose: 10 ml Documented By: Admin: 10/03/22 13:16 Dose: 10 ml Documented By: Admin: 10/03/22 05:24 Dose: 10 ml Documented By: Admin: 10/03/22 04:55 Dose: 10 ml Documented By: Admin: 10/02/22 22:59 Dose: 10 ml Documented By: Admin: 10/02/22 20:10 Dose: 10 ml Documented By: Admin: 10/02/22 16:44 Dose: 10 ml Documented By: Admin: 10/02/22 05:12 Dose: 10 ml Documented By: Admin: 10/01/22 20:03 Dose: 10 ml Documented By: Admin: 10/01/22 12:17 Dose: 10 ml Documented By: Admin: 10/01/22 05:40 Dose: 10 ml Documented By: Admin: 09/30/22 20:06 Dose: 10 ml Documented By: Admin: 09/30/22 14:44 Dose: 10 ml Documented By: Admin: 09/30/22 05:34 Dose: 10 ml Documented By: Admin: 09/29/22 20:42 Dose: 10 ml Documented By: Admin: 09/29/22 14:00 Dose: 10 ml Documented By: Admin: 09/29/22 05:30 Dose: 10 ml Documented By: Admin: 09/28/22 23:58 Dose: 10 ml Documented By: Admin: 09/28/22 20:35 Dose: Not Given Documented By: Admin: 09/28/22 15:24 Dose: Not Given Documented By: Admin: 09/28/22 07:08 Dose: Not Given Documented By: Admin: 09/27/22 21:29 Dose: Not Given Documented By: NEDA Trazodone HCl (Trazodone Hcl 50 Mg Tablet) 50 mg PO HSP PRN PRN Reason: Insomnia Last Admin: 10/02/22 23:13 Dose: 50 mg Documented By: Admin: 09/29/22 22:10 Dose: 50 mg Documented By: DEMETRIO Shift Summary 10/05/22 02:01 Shift Summary by Kanchan Crawford Primary Diagnosis: cholecystitis, multiple falls Registration Status: Date of Surgery (if applicable):09-28-2022- open cholecystectomy. Pertinent Medical Dx/Issue(s): A-fib,CKD,CVA,Hyperlipidemia,pacer Med management (antibiotics, diuretics, BP): switched to oral Augmentin, no IV placement Skin/Wound Care: bruising to left arm, medial surgical site with NORMA drain on right side Vital Signs with Trends: VSS on RA O2, liter flow/saturations:RA,C-pap at noc Pain management (acute vs. chronic): Thalia 10mg given at 2200 Lab/Rad (abnormals, trends): no labs drawn since 10/03 Neuro/Mental Status: A&O Urinary Elimination Device: Purewick for incontinence Urinary output greater than 30mL/hr? yes Date of last BM: 10/04- pt declined Colace and Senokot PO, stated she has had several loose BM recently Lines/Tubes: no IV placement Activity: Up with assist, FWW gait belt Recommendations/questions for MD: Discharge Plan (needs, disposition, etc): Will discharge to [facility] Initialized on 10/05/22 02:01 - END OF NOTE
--- NOTE | 2022-10-05 11:03 | Discharge Summary ---
Discharge Provider Provider IMPORTANT FOLLOW-UP INFORMATION FOR PCP: Patient information: Note initiated : 10/05/22 at 11:02 am Service Date, if different from initiated Date: [] Patient: Tracy Mae 82 y/o F admitted on 09/27/22 for fall/ cholecystitis. Chief Complaint: [] Date of admission: 09/27/22 20:00 Primary care physician: Tatiana Feliciano Consults: 09/27/22 Consult to Physician [CONS] Stat Comment: Consulting Provider: Alice Strange Reason For Exam: Physician to Consult COURSE Time Spent with Patient Time attestation: Total time spent providing and/or coordinating discharge services: Physical Examination Vital Signs Vital signs: Temp Pulse Resp BP Pulse Ox O2 Del Method O2 Flow Rate 97.7 F 61 20 98/77 92 Room Air 0.5 10/05/22 07:57 10/05/22 07:57 10/05/22 07:57 10/05/22 07:57 10/05/22 07:57 10/05/22 07:57 09/29/22 16:00 Discharge Plan Patient/Caregiver Discharge Instructions Activity: increase activity as tolerated Diet: Regular Diet and Low Fat Prescriptions: Discontinued Eliquis 5 mg tablet 5 mg PO BID No Action atenolol 100 mg tablet 100 mg PO BID potassium chloride 20 mEq tablet extended release 20 meq PO QDAY levothyroxine 50 mcg tablet 50 mcg PO Q48 Rx Instructions: ALTERNATES 50 MCG WITH 75 MCG. TAKES 50MCG ON , MON. TAKES 75 MCG ON MON,,,FRIDAYS omega-3 fatty acids [Fish Oil Concentrate] 1,000 mg capsule 1,000 mg PO QDAY multivitamin Tablet 1 tab PO QDAY magnesium oxide 400 mg magnesium tablet 400 mg PO QDAY furosemide 20 mg tablet 40 mg PO QDAY levothyroxine 75 mcg Tablet 75 mcg PO Q48H Rx Instructions: ALTERNATES 50 MCG WITH 75 MCG. TAKES 50MCG ON , SAT. TAKES 75 MCG ON MON,,,FRIDAYS spironolactone 25 mg Tablet 25 mg PO QDAY nitroglycerin 0.4 mg Tablet, Sublingual 0.4 mg SUBLINGUAL Q5M PRN (Reason: Chest Pain) Rx Instructions: do not exceed 3 doses per episode ezetimibe [Zetia] 10 mg Tablet 10 mg PO HS CholestOff Complete 450 tab PO QDAY cholecalciferol (vitamin D3) 1,000 unit PO QDAY Prescription drug monitoring program results: PDMP not reviewed Follow Up Plan Follow up with: Verna Gramajo ARNP [Nurse Practitioner] - 10/11/22 8:30 am Alice Strange MD [Physician] - 10/13/22 10:30 am Patient Disposition: Home, Self-Care Assessment: Patient is clinically improved she still has significant bilious leak Plan of Treatment: Evaluation and GI for ERCP with stenting next week Prognosis: Good Rehab Potential: Good I certify that the patient requires SNF services: Yes Overall status at discharge: patient is progressing back to baseline Discharge Orders: Discharge Order (Routine); Ordered 10/05/22 Ordered By: Alice Strange Pending Pending Pending: Resuscitation Status Resuscitate (Full Code) Diet Regular Diet Start MonOct 03 1321 Amoxicillin/Clavulanate Potassium (Amoxicillin/Potassium Clav 875 Mg Tablet) [facility] Protocol Last Admin: 10/05/22 08:34 Dose: 875 mg Documented By: Admin: 10/04/22 17:32 Dose: 875 mg Documented By: [facility] Atenolol (Atenolol 50 Mg Tablet) 100 mg PO BID [facility] Last Admin: 10/05/22 08:38 Dose: Not Given Documented By: Admin: 10/04/22 21:38 Dose: 100 mg Documented By: Admin: 10/04/22 09:00 Dose: 100 mg Documented By: Admin: 10/03/22 21:13 Dose: 100 mg Documented By: Admin: 10/03/22 08:52 Dose: 100 mg Documented By: Admin: 10/02/22 20:10 Dose: 100 mg Documented By: Admin: 10/02/22 08:15 Dose: 100 mg Documented By: Admin: 10/01/22 20:03 Dose: 100 mg Documented By: Admin: 10/01/22 10:30 Dose: 100 mg Documented By: Admin: 09/30/22 20:05 Dose: 100 mg Documented By: Admin: 09/30/22 08:46 Dose: 100 mg Documented By: Admin: 09/29/22 20:40 Dose: 100 mg Documented By: Admin: 09/29/22 11:37 Dose: Not Given Documented By: Admin: 09/28/22 20:35 Dose: 100 mg Documented By: Admin: 09/28/22 12:16 Dose: Not Given Documented By: Admin: 09/27/22 22:02 Dose: 100 mg Documented By: NEDA Docusate Sodium (Docusate Sodium 100 Mg Capsule) 100 mg PO BID [facility] Last Admin: 10/05/22 08:38 Dose: Not Given Documented By: Admin: 10/04/22 21:38 Dose: Not Given Documented By: Admin: 10/04/22 09:00 Dose: 100 mg Documented By: Admin: 10/03/22 20:28 Dose: Not Given Documented By: Admin: 10/03/22 08:52 Dose: Not Given Documented By: Admin: 10/02/22 20:11 Dose: Not Given Documented By: Admin: 10/02/22 08:16 Dose: 100 mg Documented By: Admin: 10/01/22 20:03 Dose: 100 mg Documented By: Admin: 10/01/22 10:30 Dose: 100 mg Documented By: Admin: 09/30/22 20:06 Dose: 100 mg Documented By: Admin: 09/30/22 08:38 Dose: 100 mg Documented By: Admin: 09/29/22 20:40 Dose: Not Given Documented By: Admin: 09/29/22 08:43 Dose: 100 mg Documented By: Admin: 09/28/22 20:35 Dose: 100 mg Documented By: Admin: 09/28/22 08:28 Dose: Not Given Documented By: Admin: 09/27/22 22:02 Dose: 100 mg Documented By: NEDA Furosemide (Furosemide 20 Mg Tablet) 40 mg PO QDAY [facility] Last Admin: 10/05/22 08:34 Dose: 40 mg Documented By: Admin: 10/04/22 09:00 Dose: 40 mg Documented By: Admin: 10/03/22 08:51 Dose: 40 mg Documented By: Admin: 10/02/22 08:16 Dose: 40 mg Documented By: Admin: 10/01/22 14:37 Dose: 40 mg Documented By: ELIZABETH Hydromorphone HCl (Hydromorphone 1 Mg/Ml Syringe) 1 mg IV Q2HP PRN; Protocol PRN Reason: Per Pain Protocol Last Admin: 09/29/22 23:51 Dose: 1 mg Documented By: DEMETRIO Acetaminophen (Ofirmev) 1,000 mg in 100 mls @ 200 mls/hr IV Q6HP PRN; Protocol PRN Reason: PAIN/FEVER > 101 Last Infusion: 10/04/22 02:15 Dose: 0 mls/hr Documented By: Admin: 10/04/22 01:12 Dose: 200 mls/hr Documented By: Infusion: 10/03/22 12:48 Dose: 0 mls/hr Documented By: Admin: 10/03/22 11:54 Dose: 200 mls/hr Documented By: Infusion: 10/03/22 05:27 Dose: 0 mls/hr Documented By: Admin: 10/03/22 04:55 Dose: 200 mls/hr Documented By: Infusion: 10/02/22 17:46 Dose: 0 mls/hr Documented By: Admin: 10/02/22 17:04 Dose: 200 mls/hr Documented By: Infusion: 10/02/22 12:01 Dose: 0 mls/hr Documented By: Admin: 10/02/22 11:21 Dose: 200 mls/hr Documented By: Infusion: 10/01/22 22:29 Dose: 0 mls/hr Documented By: Admin: 10/01/22 21:50 Dose: 200 mls/hr Documented By: Infusion: 10/01/22 16:31 Dose: 0 mls/hr Documented By: Admin: 10/01/22 15:51 Dose: 200 mls/hr Documented By: ELIZABETH Levothyroxine Sodium (Levothyroxine 25 Mcg Tablet) 25 mcg PO Q48H [facility] Last Admin: 10/04/22 07:21 Dose: 25 mcg Documented By: Admin: 10/02/22 08:14 Dose: 25 mcg Documented By: CHANDA Levothyroxine Sodium (Levothyroxine 50 Mcg Tablet) 50 mcg PO Q48H [facility] Last Admin: 10/05/22 07:05 Dose: 50 mcg Documented By: Admin: 10/03/22 08:13 Dose: 50 mcg Documented By: ANALI Ondansetron HCl (Ondansetron 4 Mg/2 Ml Vial) 4 mg IV Q6HP PRN PRN Reason: Nausea And Vomiting Last Admin: 10/02/22 22:59 Dose: 4 mg Documented By: Admin: 10/01/22 07:46 Dose: 4 mg Documented By: Admin: 09/30/22 22:35 Dose: 4 mg Documented By: Admin: 09/30/22 15:23 Dose: 4 mg Documented By: Admin: 09/30/22 03:39 Dose: 4 mg Documented By: DEMETRIO Oxycodone HCl (Oxycodone Ir 5 Mg Tablet) 10 mg PO Q4HP PRN; Protocol PRN Reason: Per Pain Protocol Last Admin: 10/05/22 02:47 Dose: 5 mg Documented By: Admin: 10/04/22 22:00 Dose: 10 mg Documented By: Admin: 09/30/22 03:25 Dose: 10 mg Documented By: Admin: 09/29/22 20:40 Dose: 10 mg Documented By: Admin: 09/29/22 04:54 Dose: 10 mg Documented By: Admin: 09/28/22 19:32 Dose: 10 mg Documented By: Admin: 09/28/22 04:34 Dose: 10 mg Documented By: Admin: 09/27/22 23:30 Dose: 10 mg Documented By: NEDA Polyethylene Glycol (Polyethylene Glycol 3350 17 Gm Packet) 17 gm PO BID [facility] Last Admin: 10/05/22 08:38 Dose: Not Given Documented By: Admin: 10/04/22 21:38 Dose: Not Given Documented By: Admin: 10/04/22 09:00 Dose: 17 gm Documented By: Admin: 10/03/22 20:28 Dose: Not Given Documented By: Admin: 10/03/22 08:52 Dose: Not Given Documented By: Admin: 10/02/22 20:11 Dose: Not Given Documented By: Admin: 10/02/22 08:16 Dose: 17 gm Documented By: Admin: 10/01/22 20:03 Dose: 17 gm Documented By: MAYNOR Senna (Sennosides 1 Tablet) 2 tab PO HS [facility] Last Admin: 10/04/22 21:38 Dose: Not Given Documented By: Admin: 10/03/22 20:29 Dose: Not Given Documented By: Admin: 10/02/22 20:11 Dose: Not Given Documented By: Admin: 10/01/22 20:03 Dose: 2 tab Documented By: Admin: 09/30/22 20:06 Dose: 2 tab Documented By: Admin: 09/29/22 20:40 Dose: 2 tab Documented By: Admin: 09/28/22 19:25 Dose: Not Given Documented By: Admin: 09/27/22 22:02 Dose: 2 tab Documented By: NEDA Sodium Chloride (0.9 % Sodium Chloride 10 Ml Syringe) 10 ml IV Q8 [facility] Last Admin: 10/05/22 06:22 Dose: Not Given Documented By: Admin: 10/05/22 00:05 Dose: Not Given Documented By: Admin: 10/04/22 13:25 Dose: Not Given Documented By: Admin: 10/04/22 06:04 Dose: 10 ml Documented By: Admin: 10/03/22 21:13 Dose: 10 ml Documented By: Admin: 10/03/22 13:16 Dose: 10 ml Documented By: Admin: 10/03/22 05:24 Dose: 10 ml Documented By: Admin: 10/03/22 04:55 Dose: 10 ml Documented By: Admin: 10/02/22 22:59 Dose: 10 ml Documented By: Admin: 10/02/22 20:10 Dose: 10 ml Documented By: Admin: 10/02/22 16:44 Dose: 10 ml Documented By: Admin: 10/02/22 05:12 Dose: 10 ml Documented By: Admin: 10/01/22 20:03 Dose: 10 ml Documented By: Admin: 10/01/22 12:17 Dose: 10 ml Documented By: Admin: 10/01/22 05:40 Dose: 10 ml Documented By: Admin: 09/30/22 20:06 Dose: 10 ml Documented By: Admin: 09/30/22 14:44 Dose: 10 ml Documented By: Admin: 09/30/22 05:34 Dose: 10 ml Documented By: Admin: 09/29/22 20:42 Dose: 10 ml Documented By: Admin: 09/29/22 14:00 Dose: 10 ml Documented By: Admin: 09/29/22 05:30 Dose: 10 ml Documented By: Admin: 09/28/22 23:58 Dose: 10 ml Documented By: Admin: 09/28/22 20:35 Dose: Not Given Documented By: Admin: 09/28/22 15:24 Dose: Not Given Documented By: Admin: 09/28/22 07:08 Dose: Not Given Documented By: Admin: 09/27/22 21:29 Dose: Not Given Documented By: NEDA Trazodone HCl (Trazodone Hcl 50 Mg Tablet) 50 mg PO HSP PRN PRN Reason: Insomnia Last Admin: 10/02/22 23:13 Dose: 50 mg Documented By: Admin: 09/29/22 22:10 Dose: 50 mg Documented By: DEMETRIO Shift Summary 10/05/22 02:01 Shift Summary by Kanchan Crawford Primary Diagnosis: cholecystitis, multiple falls Registration Status: Date of Surgery (if applicable):09-28-2022- open cholecystectomy. Pertinent Medical Dx/Issue(s): A-fib,CKD,CVA,Hyperlipidemia,pacer Med management (antibiotics, diuretics, BP): switched to oral Augmentin, no IV placement Skin/Wound Care: bruising to left arm, medial surgical site with NORMA drain on right side Vital Signs with Trends: VSS on RA O2, liter flow/saturations:RA,C-pap at [facility] Pain management (acute vs. chronic): Thalia 10mg given at 2200 Lab/Rad (abnormals, trends): no labs drawn since 10/03 Neuro/Mental Status: A&O Urinary Elimination Device: Purewick for incontinence Urinary output greater than 30mL/hr? yes Date of last BM: 10/04- pt declined Colace and Senokot PO, stated she has had several loose BM recently Lines/Tubes: no IV placement Activity: Up with assist, FWW gait belt Recommendations/questions for MD: Discharge Plan (needs, disposition, etc): Will discharge to [facility] Initialized on 10/05/22 02:01 - END OF NOTE
--- NOTE | 2022-10-11 14:47 | Operative Note ---
DATE OF OPERATION: 09/28/2022 DATE OF PROCEDURE: September 28, 2022. PREOPERATIVE DIAGNOSIS: Acute cholecystitis with cholelithiasis. POSTOPERATIVE DIAGNOSES: Gangrenous cholecystitis with perforation of the infundibulum of the gallbladder with extension into the lateral wall of the duodenal bulb. PROCEDURE: Open cholecystectomy with drainage. FINDINGS: Acute severe inflammation of the gallbladder with perforation of a large stone in the neck of the gallbladder through the wall into the lateral wall of the duodenum. Careful palpation and inspection of the duodenum did not reveal full perforation into the duodenal bulb. There were multiple large stones. DESCRIPTION OF PROCEDURE: Under general anesthesia, the patient's abdomen was prepped and draped in a sterile field. Timeout procedure was carried out as per protocol. Supraumbilical incision was made and Veress needle was inserted. 12 mm port was placed. Laparoscope was placed. It appeared that there was severe infection with gangrenous changes of the gallbladder. An attempt was made to try to remove it laparoscopically. The remaining port sites were placed and I tried to aspirate the gallbladder, but the wall was very hard. There was inflammatory necrosis of the omentum over the gallbladder. This could not be safely dissected so it was elected to proceed with an open procedure. New instruments were placed and counts were done. A right subcostal incision was made. The gallbladder was severely inflamed and hard. Once I was able to get separation between the posterior wall of the gallbladder and the liver I was able to leave the posterior wall intact. Using finger dissection, dissection was then carried down to the infundibulum. A portion of the infundibulum was viable. Once this was identified, I was able to identify the cystic artery branch. It was dissected, clipped with four clips and divided. The remaining portion of the cystic duct was hidden behind a very large stone. This stone had eaten through the wall of the gallbladder and was pushing into the lateral wall of the duodenal bulb. The stone was removed. Blunt dissection of the rest of the gallbladder was carried out until the cystic duct was identified. The cystic duct was encircled with 2 sutures of 2-0 silk and tied. It was then excised. The gallbladder with the stones were passed off. Copious irrigation was carried out. Inspection of the duodenum wall was carried out and it appeared to be intact. The bed was cauterized in two areas where there was oozing. This was controlled. A #10 drain was placed and positioned in the subhepatic space with the course standing close in apposition to the duodenal wall and the ductal structures. It was then brought out through the bed of the gallbladder. Irrigation was carried out. Sponge, needle, instrument, and blade counts were verified as correct. A posterior and anterior rectus sheaths were closed with 2-0 Prolene. Subcutaneous fat was closed with 2-0 Monocryl. Skin was closed with joey. Port site and umbilicus was closed with 0 Vicryl and joey. The drain was secured with 2-0 nylon. Tegaderm dressing was placed. The patient tolerated the procedure well. She was awakened, transferred to a bed, and taken to the postanesthetic care unit in satisfactory condition. LCS:neo Job ID: [id number] Doc ID: [id number] Alice Strange M.D.
== END 2022-10-05 12:27 | disposition home or self-care (01) | DRG 415 ==
LOC: ED 11:20 → ICU 20:00
PROVIDERS: ADMIT Family Medicine Adult Medicine; ATTEND Family Medicine Adult Medicine

== ENCOUNTER 2022-11-24 12:55 | Inpatient (IN) ==
[2022-11-24] MEDS ORDERED: IOPAMIDOL 100 ML BOTTLE IV ONE (12:56)
[2022-11-24 13:09] LABS: POC Calcium, Ionized 1.04 (1.16-1.32); POC Creatinine 1.5 (0.6-1.2); POC Potassium 3.7 (3.3-5.1)
[2022-11-24] MEDS ORDERED: 0.9 % SODIUM CHLORIDE 500 ML IV ONE (13:21)
[2022-11-24 14:38] LABS: ALT/SGPT 74 U/L (<40); AST/SGOT 204 U/L (<32); Albumin 2.9 gm/dL (3.2-5.2); Alkaline Phosphatase 174 U/L (39-117); Bilirubin,Direct 0.5 mg/dL (<0.3); Free T4 (Free Thyroxine) 2.31 ng/dL (0.93-1.70); Globulin 4.2 gm/dL (2.2-3.7); Thyroid Stimulating Hormone 9.91 uIU/mL (0.27-5.01)
[2022-11-24 14:59] LABS: Basophils # (Auto) 0.07 K/mcL (0.00-0.30); Basophils % (Auto) 0.4 % (0.0-2.0); Eosinophils # (Auto) 4.49 K/mcL (0.00-0.70); Eosinophils % (Auto) 24.4 % (0.0-7.0); Hematocrit 31.9 % (34.1-44.9); Hemoglobin 9.7 g/dL (11.2-15.7); Lymphocytes # (Auto) 3.15 K/mcL (1.50-4.80); Lymphocytes % (Auto) 17.1 % (15.5-49.0); Mean Cell Volume 71.4 fL (80.0-100.0); Mean Corpuscular HGB Conc 30.4 g/dL (31.0-36.0); Mean Platelet Volume 10.5 fL (8.8-12.5); Monocytes # (Auto) 1.01 K/mcL (0.10-0.90); Monocytes % (Auto) 5.5 % (1.0-12.0); Neutrophils % (Auto) 52.2 % (38.0-78.0); Platelet Count 353 K/mcL (140-440); RBC 4.47 M/mcL (3.59-5.38); Red Cell Distribution Width 24.8 % (11.5-14.5); WBC 18.4 K/mcL (4.5-11.0)
[2022-11-24] MEDS ORDERED: fentaNYL 100 MCG/2 ML VIAL IV ONE (16:03)
[2022-11-24 16:25] LABS: Appearance,Urine CLEAR (Clear); Bilirubin,Urine Negative (Negative); Color,Urine YELLOW; Culture Indicated,Urine No; Glucose,Urine (UA) Negative (Negative); Ketones,Urine Negative (Negative); Leukocyte Esterase,Urine Negative /uL (Negative); Nitrate,Urine Negative (Negative); Protein,Urine Negative (Negative); Urine Blood Negative (Negative); Urine Hyaline Cast 19 /lph (0-2); Urine RBC 0 /hpf (0-3); Urine Squamous Epithelial Cell 0 /hpf (0-4); Urine WBC 0 /hpf (0-4); Urobilinogen,Urine Negative
[2022-11-24] MEDS ORDERED: PIPERACILLIN SODIUM/TAZOBACTAM 3.375 GM in DEXTROSE 5% IN WATER 50 ML IV SCH (16:45)
[2022-11-24] MEDS ORDERED: PROMETHAZINE 25 MG/ML VIAL IV PRN (17:59)
[2022-11-24] MEDS ORDERED: 0.9 % SODIUM CHLORIDE 1,000 ML IV SCH (18:00)
[2022-11-24] MEDS: PIPERACILLIN SODIUM/TAZOBACTAM 3.375 GM in DEXTROSE 5% IN WATER 50 ML IV SCH (19:32)
[2022-11-24] MEDS ORDERED: rOPINIRole 1 MG TABLET PO ONE (21:01)
[2022-11-24] MEDS ORDERED: diphenhydrAMINE 25 MG CAPSULE PO ONE (21:02)
[2022-11-24] MEDS: ATENOLOL 50 MG TABLET PO SCH (21:16)
[2022-11-24] MEDS: 0.9 % SODIUM CHLORIDE 10 ML SYRINGE IV SCH (22:25)
[2022-11-25] MEDS: PIPERACILLIN SODIUM/TAZOBACTAM 3.375 GM in DEXTROSE 5% IN WATER 50 ML IV SCH ×5 (00:44→23:50)
[2022-11-25] MEDS: 0.9 % SODIUM CHLORIDE 10 ML SYRINGE IV SCH ×3 (06:23→20:20)
[2022-11-25 06:42] LABS: Basophils # (Auto) 0.08 K/mcL (0.00-0.30); Basophils % (Auto) 0.5 % (0.0-2.0); Eosinophils # (Auto) 4.42 K/mcL (0.00-0.70); Eosinophils % (Auto) 28.1 % (0.0-7.0); Hemoglobin 8.9 g/dL (11.2-15.7); Lymphocytes # (Auto) 1.19 K/mcL (1.50-4.80); Lymphocytes % (Auto) 7.6 % (15.5-49.0); Mean Cell Volume 73.5 fL (80.0-100.0); Mean Corpuscular HGB Conc 29.7 g/dL (31.0-36.0); Monocytes % (Auto) 3.2 % (1.0-12.0); Platelet Count 334 K/mcL (140-440); RBC 4.08 M/mcL (3.59-5.38); Red Cell Distribution Width 25.3 % (11.5-14.5); WBC 15.7 K/mcL (4.5-11.0)
[2022-11-25 06:54] LABS: ALT/SGPT 82 U/L (<40); AST/SGOT 268 U/L (<32); Albumin 2.4 gm/dL (3.2-5.2); Albumin/Globulin Ratio 0.7 (1.0-2.3); Alkaline Phosphatase 167 U/L (39-117); Bilirubin,Direct 0.4 mg/dL (<0.3); Bilirubin,Total 0.9 mg/dL (0.1-1.0); Blood Urea Nitrogen 28 mg/dL (8-23); Carbon Dioxide 22 mmol/L (22-30); Chloride 101 mmol/L (96-108); Globulin 3.6 gm/dL (2.2-3.7); Glomerular Filtration Rate 39; Glucose 75 mg/dL (70-105); Lactate Dehydrogenase 448 U/L (135-225); Triglycerides 100 mg/dL (<150); Uric Acid 7.6 mg/dL (2.5-8.0)
[2022-11-25] MEDS: FUROSEMIDE 80 MG TABLET PO SCH ×2 (08:39→15:28)
[2022-11-25] MEDS: POTASSIUM CHLORIDE 20 MEQ TABLET PO SCH ×2 (08:39→17:55)
[2022-11-25] MEDS: LEVOTHYROXINE 100 MCG VIAL IV SCH (08:39)
[2022-11-25] MEDS: ATENOLOL 50 MG TABLET PO SCH ×2 (10:45→20:37)
[2022-11-25] MEDS ORDERED: ALBUMIN HUMAN 25 GM/100 ML BAG IV ONE ×3 (11:04→12:15)
[2022-11-25] MEDS: 0.9 % SODIUM CHLORIDE 1,000 ML IV SCH ×3 (11:29→23:39)
[2022-11-25] MEDS ORDERED: 0.9 % SODIUM CHLORIDE 500 ML IV ONE (11:30)
[2022-11-25] MEDS ORDERED: MIDAZOLAM 2 MG/2 ML VIAL ONE (15:35)
[2022-11-25] MEDS ORDERED: PROPOFOL 200 MG/20 ML VIAL IV ONE ×2 (15:35→15:37)
[2022-11-25] MEDS ORDERED: MIDAZOLAM 2 MG/2 ML VIAL IV ONE (15:38)
[2022-11-25] MEDS: LACTATED RINGERS 1,000 ML IV SCH ×2 (17:55→23:50)
[2022-11-25] MEDS: oxyCODONE IR 5 MG TABLET PO PRN (18:42)
[2022-11-26] MEDS: LACTATED RINGERS 1,000 ML IV SCH ×4 (05:43→23:10)
[2022-11-26] MEDS: PIPERACILLIN SODIUM/TAZOBACTAM 3.375 GM in DEXTROSE 5% IN WATER 50 ML IV SCH ×2 (05:43→12:01)
[2022-11-26] MEDS: 0.9 % SODIUM CHLORIDE 10 ML SYRINGE IV SCH ×3 (05:44→23:10)
[2022-11-26] MEDS: 0.9 % SODIUM CHLORIDE 1,000 ML IV SCH ×2 (06:35→12:01)
[2022-11-26 06:58] LABS: Basophils # (Auto) 0.12 K/mcL (0.00-0.30); Basophils % (Auto) 0.7 % (0.0-2.0); Eosinophils # (Auto) 6.79 K/mcL (0.00-0.70); Eosinophils % (Auto) 41.3 % (0.0-7.0); Hematocrit 28.9 % (34.1-44.9); Hemoglobin 8.5 g/dL (11.2-15.7); Lymphocytes # (Auto) 2.06 K/mcL (1.50-4.80); Lymphocytes % (Auto) 12.5 % (15.5-49.0); Mean Cell Volume 74.1 fL (80.0-100.0); Mean Corpuscular HGB Conc 29.4 g/dL (31.0-36.0); Mean Platelet Volume 10.7 fL (8.8-12.5); Monocytes # (Auto) 1.13 K/mcL (0.10-0.90); Monocytes % (Auto) 6.9 % (1.0-12.0); Neutrophils % (Auto) 38.2 % (38.0-78.0); Platelet Count 378 K/mcL (140-440); WBC 16.5 K/mcL (4.5-11.0)
[2022-11-26 07:05] LABS: ALT/SGPT 131 U/L (<40); AST/SGOT 474 U/L (<32); Albumin 2.8 gm/dL (3.2-5.2); Alkaline Phosphatase 259 U/L (39-117); Bilirubin,Direct 0.8 mg/dL (<0.3); Bilirubin,Total 1.3 mg/dL (0.1-1.0); Blood Urea Nitrogen 21 mg/dL (8-23); Calcium 8.3 mg/dL (8.6-10.4); Carbon Dioxide 22 mmol/L (22-30); Chloride 101 mmol/L (96-108); Globulin 2.9 gm/dL (2.2-3.7); Glomerular Filtration Rate 47; Glucose 75 mg/dL (70-105); Lactate Dehydrogenase 401 U/L (135-225); Phosphorous 2.2 mg/dL (2.5-4.5); Triglycerides 80 mg/dL (<150); Uric Acid 5.7 mg/dL (2.5-8.0)
[2022-11-26] MEDS: LEVOTHYROXINE 100 MCG VIAL IV SCH (08:33)
[2022-11-26] MEDS: POTASSIUM CHLORIDE 20 MEQ TABLET PO SCH ×2 (08:33→17:16)
[2022-11-26] MEDS: ATENOLOL 50 MG TABLET PO SCH ×2 (08:34→23:10)
[2022-11-26] MEDS: FUROSEMIDE 80 MG TABLET PO SCH ×2 (08:34→17:01)
[2022-11-26] MEDS: CIPROFLOXACIN 400 MG/200 ML BAG IV SCH (14:38)
[2022-11-26] MEDS ORDERED: POTASSIUM PHOSPHATE 40 MEQ in DEXTROSE 5% IN WATER 500 ML IV ONE (17:17)
[2022-11-26] MEDS: oxyCODONE IR 5 MG TABLET PO PRN (17:31)
[2022-11-26] MEDS ORDERED: POTASSIUM PHOSPHATE 66 MEQ/15 ML VIAL IV ONE (17:50)
[2022-11-27] MEDS: CIPROFLOXACIN 400 MG/200 ML BAG IV SCH ×3 (00:01→20:06)
[2022-11-27] MEDS: 0.9 % SODIUM CHLORIDE 10 ML SYRINGE IV SCH ×3 (05:15→20:06)
[2022-11-27 07:08] LABS: Basophils # (Auto) 0.11 K/mcL (0.00-0.30); Basophils % (Auto) 0.7 % (0.0-2.0); Eosinophils % (Auto) 37.1 % (0.0-7.0); Hematocrit 27.2 % (34.1-44.9); Hemoglobin 8.3 g/dL (11.2-15.7); Lymphocytes # (Auto) 2.52 K/mcL (1.50-4.80); Lymphocytes % (Auto) 15.3 % (15.5-49.0); Mean Cell Volume 70.8 fL (80.0-100.0); Mean Corpuscular HGB Conc 30.5 g/dL (31.0-36.0); Mean Platelet Volume 10.7 fL (8.8-12.5); Monocytes % (Auto) 7.3 % (1.0-12.0); Neutrophils % (Auto) 38.9 % (38.0-78.0); Platelet Count 412 K/mcL (140-440); RBC 3.84 M/mcL (3.59-5.38); Red Cell Distribution Width 26.1 % (11.5-14.5); WBC 16.4 K/mcL (4.5-11.0)
[2022-11-27] MEDS: POTASSIUM CHLORIDE 20 MEQ TABLET PO SCH ×2 (07:18→16:17)
[2022-11-27] MEDS: LACTATED RINGERS 1,000 ML IV SCH ×2 (07:18→15:45)
[2022-11-27] MEDS: FUROSEMIDE 80 MG TABLET PO SCH ×2 (07:18→16:17)
[2022-11-27] MEDS: LEVOTHYROXINE 100 MCG VIAL IV SCH (07:18)
[2022-11-27] MEDS: ATENOLOL 50 MG TABLET PO SCH ×2 (07:19→20:03)
[2022-11-27 07:25] LABS: ALT/SGPT 162 U/L (<40); AST/SGOT 501 U/L (<32); Albumin 2.6 gm/dL (3.2-5.2); Albumin/Globulin Ratio 0.8 (1.0-2.3); Alkaline Phosphatase 304 U/L (39-117); Bilirubin,Direct 0.8 mg/dL (<0.3); Bilirubin,Total 1.3 mg/dL (0.1-1.0); Blood Urea Nitrogen 17 mg/dL (8-23); Calcium 8.2 mg/dL (8.6-10.4); Carbon Dioxide 20 mmol/L (22-30); Chloride 100 mmol/L (96-108); Globulin 3.4 gm/dL (2.2-3.7); Glomerular Filtration Rate 53; Glucose 79 mg/dL (70-105); Lactate Dehydrogenase 593 U/L (135-225); Phosphorous 2.8 mg/dL (2.5-4.5); Triglycerides 87 mg/dL (<150); Uric Acid 4.5 mg/dL (2.5-8.0)
[2022-11-27] MEDS: oxyCODONE IR 5 MG TABLET PO PRN ×2 (15:48→19:14)
[2022-11-27] MEDS: HYDROmorphone 0.5 MG/0.5 ML SYRINGE IV PRN (19:17)
[2022-11-28] MEDS: oxyCODONE IR 5 MG TABLET PO PRN ×5 (00:09→22:53)
[2022-11-28] MEDS: 0.9 % SODIUM CHLORIDE 10 ML SYRINGE IV SCH ×3 (04:31→21:40)
[2022-11-28 06:43] LABS: Basophils # (Auto) 0.11 K/mcL (0.00-0.30); Basophils % (Auto) 0.6 % (0.0-2.0); Eosinophils # (Auto) 5.08 K/mcL (0.00-0.70); Eosinophils % (Auto) 27.8 % (0.0-7.0); Hematocrit 28.8 % (34.1-44.9); Hemoglobin 8.5 g/dL (11.2-15.7); Lymphocytes # (Auto) 3.13 K/mcL (1.50-4.80); Lymphocytes % (Auto) 17.2 % (15.5-49.0); Mean Cell Volume 72.9 fL (80.0-100.0); Mean Corpuscular HGB Conc 29.5 g/dL (31.0-36.0); Mean Platelet Volume 10.3 fL (8.8-12.5); Monocytes # (Auto) 1.58 K/mcL (0.10-0.90); Monocytes % (Auto) 8.7 % (1.0-12.0); Neutrophils % (Auto) 44.2 % (38.0-78.0); Platelet Count 474 K/mcL (140-440); RBC 3.95 M/mcL (3.59-5.38); Red Cell Distribution Width 27.3 % (11.5-14.5); WBC 18.3 K/mcL (4.5-11.0)
[2022-11-28] MEDS: POTASSIUM CHLORIDE 20 MEQ TABLET PO SCH ×2 (07:06→16:03)
[2022-11-28 07:34] LABS: ALT/SGPT 197 U/L (<40); AST/SGOT 585 U/L (<32); Albumin 2.7 gm/dL (3.2-5.2); Albumin/Globulin Ratio 0.8 (1.0-2.3); Alkaline Phosphatase 348 U/L (39-117); Bilirubin,Direct 0.9 mg/dL (<0.3); Bilirubin,Total 1.8 mg/dL (0.1-1.0); Blood Urea Nitrogen 14 mg/dL (8-23); Calcium 8.3 mg/dL (8.6-10.4); Carbon Dioxide 19 mmol/L (22-30); Chloride 100 mmol/L (96-108); Globulin 3.6 gm/dL (2.2-3.7); Glomerular Filtration Rate 47; Glucose 78 mg/dL (70-105); Lactate Dehydrogenase 508 U/L (135-225); Phosphorous 3.3 mg/dL (2.5-4.5); Triglycerides 100 mg/dL (<150)
[2022-11-28] MEDS: FUROSEMIDE 80 MG TABLET PO SCH ×2 (07:45→14:18)
[2022-11-28] MEDS: ATENOLOL 50 MG TABLET PO SCH ×2 (07:45→21:39)
[2022-11-28] MEDS: CIPROFLOXACIN 400 MG/200 ML BAG IV SCH ×3 (07:45→22:46)
[2022-11-28] MEDS: LEVOTHYROXINE 100 MCG VIAL IV SCH (07:45)
[2022-11-28] MEDS: ONDANSETRON 4 MG/2 ML VIAL IV PRN (08:55)
[2022-11-28] MEDS: HYDROmorphone 0.5 MG/0.5 ML SYRINGE IV PRN (12:36)
[2022-11-28] MEDS ORDERED: IOPAMIDOL 100 ML BOTTLE IV ONE (13:40)
[2022-11-29] MEDS: ONDANSETRON 4 MG/2 ML VIAL IV PRN (00:38)
[2022-11-29] MEDS: oxyCODONE IR 5 MG TABLET PO PRN ×2 (03:57→21:09)
[2022-11-29] MEDS: 0.9 % SODIUM CHLORIDE 10 ML SYRINGE IV SCH ×3 (04:01→21:11)
[2022-11-29] MEDS: HYDROmorphone 0.5 MG/0.5 ML SYRINGE IV PRN (06:02)
[2022-11-29 07:10] LABS: ALT/SGPT 183 U/L (<40); AST/SGOT 438 U/L (<32); Albumin 2.9 gm/dL (3.2-5.2); Albumin/Globulin Ratio 0.8 (1.0-2.3); Alkaline Phosphatase 371 U/L (39-117); Bilirubin,Direct 0.8 mg/dL (<0.3); Bilirubin,Total 1.6 mg/dL (0.1-1.0); Blood Urea Nitrogen 11 mg/dL (8-23); Calcium 8.2 mg/dL (8.6-10.4); Carbon Dioxide 25 mmol/L (22-30); Chloride 95 mmol/L (96-108); Globulin 3.6 gm/dL (2.2-3.7); Glomerular Filtration Rate 53; Glucose 95 mg/dL (70-105); Lactate Dehydrogenase 537 U/L (135-225); Phosphorous 3.2 mg/dL (2.5-4.5); Triglycerides 141 mg/dL (<150); Uric Acid 4.9 mg/dL (2.5-8.0)
[2022-11-29 08:05] LABS: Basophils % (Auto) 0.6 % (0.0-2.0); Eosinophils # (Auto) 5.61 K/mcL (0.00-0.70); Eosinophils % (Auto) 35.5 % (0.0-7.0); Hematocrit 29.8 % (34.1-44.9); Lymphocytes # (Auto) 2.41 K/mcL (1.50-4.80); Lymphocytes % (Auto) 15.2 % (15.5-49.0); Mean Cell Volume 71.5 fL (80.0-100.0); Mean Corpuscular HGB Conc 30.2 g/dL (31.0-36.0); Mean Platelet Volume 10.2 fL (8.8-12.5); Monocytes # (Auto) 1.26 K/mcL (0.10-0.90); Neutrophils % (Auto) 39.9 % (38.0-78.0); Platelet Count 503 K/mcL (140-440); RBC 4.17 M/mcL (3.59-5.38); Red Cell Distribution Width 27.3 % (11.5-14.5); WBC 15.8 K/mcL (4.5-11.0)
[2022-11-29] MEDS: FUROSEMIDE 80 MG TABLET PO SCH ×2 (11:29→16:42)
[2022-11-29] MEDS: POTASSIUM CHLORIDE 20 MEQ TABLET PO SCH ×2 (11:29→16:42)
[2022-11-29] MEDS: ATENOLOL 50 MG TABLET PO SCH ×2 (11:30→21:09)
[2022-11-29] MEDS: CIPROFLOXACIN 400 MG/200 ML BAG IV SCH ×2 (11:36→23:36)
[2022-11-29] MEDS: LEVOTHYROXINE 100 MCG VIAL IV SCH (11:37)
[2022-11-29] MEDS: LEVOTHYROXINE 100 MCG TABLET PO SCH (14:36)
[2022-11-30] MEDS: 0.9 % SODIUM CHLORIDE 10 ML SYRINGE IV SCH ×3 (06:44→21:00)
[2022-11-30] MEDS: ATENOLOL 50 MG TABLET PO SCH ×2 (09:12→21:01)
[2022-11-30] MEDS: FUROSEMIDE 80 MG TABLET PO SCH ×2 (09:12→16:51)
[2022-11-30] MEDS: POTASSIUM CHLORIDE 20 MEQ TABLET PO SCH ×2 (09:12→16:50)
[2022-11-30] MEDS: LEVOTHYROXINE 100 MCG TABLET PO SCH (09:12)
[2022-11-30] MEDS: CIPROFLOXACIN 400 MG/200 ML BAG IV SCH ×2 (10:51→16:38)
[2022-11-30 11:37] LABS: Basophils # (Auto) 0.14 K/mcL (0.00-0.30); Basophils % (Auto) 0.9 % (0.0-2.0); Eosinophils # (Auto) 4.02 K/mcL (0.00-0.70); Hematocrit 28.7 % (34.1-44.9); Hemoglobin 8.9 g/dL (11.2-15.7); Lymphocytes # (Auto) 3.38 K/mcL (1.50-4.80); Mean Cell Volume 70.2 fL (80.0-100.0); Mean Platelet Volume 9.8 fL (8.8-12.5); Monocytes # (Auto) 1.61 K/mcL (0.10-0.90); Neutrophils % (Auto) 42.2 % (38.0-78.0); Platelet Count 572 K/mcL (140-440); RBC 4.09 M/mcL (3.59-5.38); Red Cell Distribution Width 27.9 % (11.5-14.5); WBC 16.1 K/mcL (4.5-11.0)
[2022-11-30] MEDS: oxyCODONE IR 5 MG TABLET PO PRN ×2 (13:31→21:01)
[2022-11-30] MEDS: LINEZOLID 600 MG/300 ML BAG IV SCH (17:48)
[2022-11-30] MEDS: FLUCONAZOLE 400 MG/200 ML BAG IV SCH (17:48)
[2022-11-30] MEDS ORDERED: MAGNESIUM HYDROXIDE 30 ML ORAL.SUSP PO ONE ×2 (21:16→21:17)
[2022-11-30] MEDS ORDERED: MAGNESIUM HYDROXIDE 30 ML ORAL.SUSP ONE ×2 (22:19→22:20)
[2022-12-01] MEDS: CIPROFLOXACIN 400 MG/200 ML BAG IV SCH ×3 (00:57→20:42)
[2022-12-01] MEDS ORDERED: MAGNESIUM HYDROXIDE 30 ML ORAL.SUSP PO PRN (01:30)
[2022-12-01] MEDS: 0.9 % SODIUM CHLORIDE 10 ML SYRINGE IV SCH ×3 (05:30→20:43)
[2022-12-01] MEDS: LINEZOLID 600 MG/300 ML BAG IV SCH ×2 (07:07→20:43)
[2022-12-01] MEDS: FUROSEMIDE 80 MG TABLET PO SCH ×2 (07:07→17:09)
[2022-12-01] MEDS: POTASSIUM CHLORIDE 20 MEQ TABLET PO SCH ×2 (07:07→17:09)
[2022-12-01] MEDS: LEVOTHYROXINE 100 MCG TABLET PO SCH (07:07)
[2022-12-01] MEDS: ATENOLOL 50 MG TABLET PO SCH ×2 (08:33→20:00)
[2022-12-01] MEDS: FLUCONAZOLE 400 MG/200 ML BAG IV SCH (11:38)
[2022-12-01] MEDS: ONDANSETRON 4 MG/2 ML VIAL IV PRN (16:18)
[2022-12-01] MEDS: oxyCODONE IR 5 MG TABLET PO PRN (20:42)
[2022-12-02] MEDS: 0.9 % SODIUM CHLORIDE 10 ML SYRINGE IV SCH ×3 (05:14→23:10)
[2022-12-02 07:12] LABS: ALT/SGPT 118 U/L (<40); AST/SGOT 231 U/L (<32); Albumin 2.8 gm/dL (3.2-5.2); Albumin/Globulin Ratio 0.8 (1.0-2.3); Alkaline Phosphatase 437 U/L (39-117); Bilirubin,Total 1.6 mg/dL (0.1-1.0); Blood Urea Nitrogen 16 mg/dL (8-23); Calcium 8.3 mg/dL (8.6-10.4); Carbon Dioxide 25 mmol/L (22-30); Chloride 100 mmol/L (96-108); Globulin 3.6 gm/dL (2.2-3.7); Glomerular Filtration Rate 39; Glucose 95 mg/dL (70-105); Lactate Dehydrogenase 330 U/L (135-225); Phosphorous 2.8 mg/dL (2.5-4.5); Triglycerides 96 mg/dL (<150); Uric Acid 6.7 mg/dL (2.5-8.0)
[2022-12-02 07:34] LABS: Basophils # (Auto) 0.16 K/mcL (0.00-0.30); Eosinophils # (Auto) 3.24 K/mcL (0.00-0.70); Eosinophils % (Auto) 19.7 % (0.0-7.0); Hematocrit 29.1 % (34.1-44.9); Hemoglobin 8.9 g/dL (11.2-15.7); Lymphocytes # (Auto) 3.31 K/mcL (1.50-4.80); Lymphocytes % (Auto) 20.1 % (15.5-49.0); Mean Cell Volume 71.7 fL (80.0-100.0); Mean Corpuscular HGB Conc 30.6 g/dL (31.0-36.0); Mean Platelet Volume 10.3 fL (8.8-12.5); Monocytes # (Auto) 1.85 K/mcL (0.10-0.90); Monocytes % (Auto) 11.2 % (1.0-12.0); Neutrophils % (Auto) 47.1 % (38.0-78.0); Platelet Count 569 K/mcL (140-440); RBC 4.06 M/mcL (3.59-5.38); Red Cell Distribution Width 29.8 % (11.5-14.5); WBC 16.5 K/mcL (4.5-11.0)
[2022-12-02] MEDS: LEVOTHYROXINE 100 MCG TABLET PO SCH (07:44)
[2022-12-02] MEDS: POTASSIUM CHLORIDE 20 MEQ TABLET PO SCH ×2 (07:44→16:15)
[2022-12-02] MEDS: oxyCODONE IR 5 MG TABLET PO PRN (07:44)
[2022-12-02] MEDS: FUROSEMIDE 80 MG TABLET PO SCH ×2 (07:44→16:41)
[2022-12-02] MEDS: ATENOLOL 50 MG TABLET PO SCH ×2 (08:36→23:12)
[2022-12-02] MEDS: CIPROFLOXACIN 400 MG/200 ML BAG IV SCH ×2 (08:42→23:10)
[2022-12-02] MEDS: LINEZOLID 600 MG/300 ML BAG IV SCH ×2 (08:42→23:52)
[2022-12-02] MEDS: HYDROmorphone 0.5 MG/0.5 ML SYRINGE IV PRN (10:55)
[2022-12-02] MEDS: FLUCONAZOLE 400 MG/200 ML BAG IV SCH (11:30)
[2022-12-02 16:28] LABS: Hepatitis A Antibody IgM Non-Reactive (Non-Reactive); Hepatitis B Surface Antigen Negative (Negative); Hepatitis C Virus Antibody Non-Reactive (Non-Reactive)
[2022-12-03] MEDS: oxyCODONE IR 5 MG TABLET PO PRN ×2 (00:44→19:23)
[2022-12-03] MEDS: 0.9 % SODIUM CHLORIDE 10 ML SYRINGE IV SCH ×3 (05:46→20:30)
[2022-12-03 07:04] LABS: Basophils # (Auto) 0.15 K/mcL (0.00-0.30); Basophils % (Auto) 0.9 % (0.0-2.0); Eosinophils # (Auto) 1.73 K/mcL (0.00-0.70); Eosinophils % (Auto) 10.7 % (0.0-7.0); Hematocrit 28.2 % (34.1-44.9); Hemoglobin 8.5 g/dL (11.2-15.7); Lymphocytes % (Auto) 17.9 % (15.5-49.0); Mean Cell Volume 72.7 fL (80.0-100.0); Mean Corpuscular HGB Conc 30.1 g/dL (31.0-36.0); Mean Platelet Volume 9.9 fL (8.8-12.5); Monocytes # (Auto) 1.73 K/mcL (0.10-0.90); Monocytes % (Auto) 10.7 % (1.0-12.0); Platelet Count 616 K/mcL (140-440); RBC 3.88 M/mcL (3.59-5.38); WBC 16.2 K/mcL (4.5-11.0)
[2022-12-03 07:05] LABS: ALT/SGPT 106 U/L (<40); AST/SGOT 208 U/L (<32); Albumin 2.7 gm/dL (3.2-5.2); Albumin/Globulin Ratio 0.7 (1.0-2.3); Alkaline Phosphatase 420 U/L (39-117); Bilirubin,Direct 0.9 mg/dL (<0.3); Bilirubin,Total 1.5 mg/dL (0.1-1.0); Blood Urea Nitrogen 17 mg/dL (8-23); Calcium 8.4 mg/dL (8.6-10.4); Carbon Dioxide 23 mmol/L (22-30); Chloride 97 mmol/L (96-108); Globulin 3.7 gm/dL (2.2-3.7); Glomerular Filtration Rate 32; Glucose 101 mg/dL (70-105); Lactate Dehydrogenase 344 U/L (135-225); Phosphorous 3.3 mg/dL (2.5-4.5); Triglycerides 105 mg/dL (<150); Uric Acid 7.4 mg/dL (2.5-8.0)
[2022-12-03] MEDS: FUROSEMIDE 80 MG TABLET PO SCH ×2 (07:21→16:20)
[2022-12-03] MEDS: LEVOTHYROXINE 100 MCG TABLET PO SCH (07:21)
[2022-12-03] MEDS: POTASSIUM CHLORIDE 20 MEQ TABLET PO SCH ×2 (07:21→16:20)
[2022-12-03] MEDS: ATENOLOL 50 MG TABLET PO SCH ×2 (08:42→20:39)
[2022-12-03] MEDS: ONDANSETRON 4 MG/2 ML VIAL IV PRN ×2 (09:01→17:59)
[2022-12-03] MEDS: CIPROFLOXACIN 400 MG/200 ML BAG IV SCH ×2 (09:37→20:35)
[2022-12-03] MEDS: LINEZOLID 600 MG/300 ML BAG IV SCH ×2 (09:37→22:00)
[2022-12-03] MEDS: FLUCONAZOLE 400 MG/200 ML BAG IV SCH (11:50)
[2022-12-03] MEDS: HYDROmorphone 0.5 MG/0.5 ML SYRINGE IV PRN (20:29)
[2022-12-04] MEDS: ONDANSETRON 4 MG/2 ML VIAL IV PRN ×2 (00:36→09:02)
[2022-12-04] MEDS: 0.9 % SODIUM CHLORIDE 10 ML SYRINGE IV SCH ×3 (06:37→20:34)
[2022-12-04 06:57] LABS: ALT/SGPT 89 U/L (<40); AST/SGOT 168 U/L (<32); Albumin 2.6 gm/dL (3.2-5.2); Albumin/Globulin Ratio 0.7 (1.0-2.3); Alkaline Phosphatase 396 U/L (39-117); Bilirubin,Direct 0.9 mg/dL (<0.3); Bilirubin,Total 1.4 mg/dL (0.1-1.0); Blood Urea Nitrogen 19 mg/dL (8-23); Calcium 8.3 mg/dL (8.6-10.4); Carbon Dioxide 25 mmol/L (22-30); Chloride 94 mmol/L (96-108); Globulin 3.8 gm/dL (2.2-3.7); Glomerular Filtration Rate 30; Glucose 110 mg/dL (70-105); Lactate Dehydrogenase 280 U/L (135-225); Phosphorous 3.5 mg/dL (2.5-4.5); Triglycerides 102 mg/dL (<150)
[2022-12-04] MEDS: POTASSIUM CHLORIDE 20 MEQ TABLET PO SCH ×2 (08:00→16:03)
[2022-12-04] MEDS: FUROSEMIDE 80 MG TABLET PO SCH ×2 (08:00→15:28)
[2022-12-04] MEDS: LEVOTHYROXINE 100 MCG TABLET PO SCH (08:10)
[2022-12-04] MEDS: FLUCONAZOLE 400 MG/200 ML BAG IV SCH (09:00)
[2022-12-04] MEDS: CIPROFLOXACIN 400 MG/200 ML BAG IV SCH ×2 (09:00→20:36)
[2022-12-04] MEDS: SODIUM CHLORIDE 1 GM TABLET PO SCH ×2 (09:00→14:12)
[2022-12-04] MEDS: ATENOLOL 50 MG TABLET PO SCH ×2 (09:00→21:27)
[2022-12-04] MEDS: LINEZOLID 600 MG/300 ML BAG IV SCH ×2 (09:01→22:47)
[2022-12-04] MEDS: 0.9 % SODIUM CHLORIDE 1,000 ML IV SCH ×2 (09:02→22:47)
[2022-12-04] MEDS ORDERED: PROMETHAZINE 25 MG/ML VIAL IV PRN (15:09)
[2022-12-04] MEDS: HYDROmorphone 0.5 MG/0.5 ML SYRINGE IV PRN (22:47)
[2022-12-05] MEDS: FUROSEMIDE 80 MG TABLET PO SCH ×2 (08:26→15:57)
[2022-12-05] MEDS: 0.9 % SODIUM CHLORIDE 10 ML SYRINGE IV SCH ×3 (08:26→20:03)
[2022-12-05] MEDS: LEVOTHYROXINE 100 MCG TABLET PO SCH (08:26)
[2022-12-05] MEDS: CIPROFLOXACIN 400 MG/200 ML BAG IV SCH ×2 (08:26→20:22)
[2022-12-05] MEDS: POTASSIUM CHLORIDE 20 MEQ TABLET PO SCH ×2 (08:26→17:54)
[2022-12-05] MEDS: LINEZOLID 600 MG/300 ML BAG IV SCH ×2 (10:01→21:31)
[2022-12-05] MEDS: 0.9 % SODIUM CHLORIDE 1,000 ML IV SCH ×2 (10:05→15:48)
[2022-12-05] MEDS: ATENOLOL 50 MG TABLET PO SCH ×2 (11:26→20:20)
[2022-12-05] MEDS: FLUCONAZOLE 400 MG/200 ML BAG IV SCH (11:26)
[2022-12-05] MEDS: SODIUM CHLORIDE 1 GM TABLET PO SCH (15:57)
[2022-12-05] MEDS: oxyCODONE IR 5 MG TABLET PO PRN (20:41)
[2022-12-05] MEDS: POLYETHYLENE GLYCOL 3350 17 GM PACKET PO SCH (22:04)
[2022-12-06] MEDS: 0.9 % SODIUM CHLORIDE 1,000 ML IV SCH ×3 (04:14→23:30)
[2022-12-06] MEDS: oxyCODONE IR 5 MG TABLET PO PRN ×2 (04:16→09:08)
[2022-12-06] MEDS: 0.9 % SODIUM CHLORIDE 10 ML SYRINGE IV SCH ×3 (05:30→20:31)
[2022-12-06] MEDS: LEVOTHYROXINE 100 MCG TABLET PO SCH (07:38)
[2022-12-06] MEDS: FUROSEMIDE 80 MG TABLET PO SCH ×2 (07:38→16:33)
[2022-12-06] MEDS: POTASSIUM CHLORIDE 20 MEQ TABLET PO SCH ×2 (07:38→17:56)
[2022-12-06] MEDS: CIPROFLOXACIN 400 MG/200 ML BAG IV SCH ×2 (08:41→20:39)
[2022-12-06] MEDS: SODIUM CHLORIDE 1 GM TABLET PO SCH (08:43)
[2022-12-06] MEDS: POLYETHYLENE GLYCOL 3350 17 GM PACKET PO SCH ×3 (08:43→20:38)
[2022-12-06] MEDS: ATENOLOL 50 MG TABLET PO SCH ×2 (09:10→20:31)
[2022-12-06] MEDS: LINEZOLID 600 MG/300 ML BAG IV SCH ×2 (09:54→21:55)
[2022-12-06 10:36] LABS: ALT/SGPT 62 U/L (<40); AST/SGOT 119 U/L (<32); Albumin 2.5 gm/dL (3.2-5.2); Albumin/Globulin Ratio 0.7 (1.0-2.3); Alkaline Phosphatase 358 U/L (39-117); Bilirubin,Total 1.4 mg/dL (0.1-1.0); Blood Urea Nitrogen 18 mg/dL (8-23); Calcium 7.8 mg/dL (8.6-10.4); Carbon Dioxide 16 mmol/L (22-30); Chloride 102 mmol/L (96-108); Globulin 3.6 gm/dL (2.2-3.7); Glomerular Filtration Rate 39; Glucose 109 mg/dL (70-105)
[2022-12-06] MEDS: FLUCONAZOLE 400 MG/200 ML BAG IV SCH (11:04)
[2022-12-06] MEDS: VENLAFAXINE 37.5 MG TABLET PO SCH (20:38)
[2022-12-07] MEDS: ONDANSETRON 4 MG/2 ML VIAL IV PRN ×2 (04:38→10:20)
[2022-12-07] MEDS: 0.9 % SODIUM CHLORIDE 10 ML SYRINGE IV SCH ×3 (05:22→20:51)
[2022-12-07 06:59] LABS: Basophils # (Auto) 0.09 K/mcL (0.00-0.30); Basophils % (Auto) 0.7 % (0.0-2.0); Eosinophils # (Auto) 2.44 K/mcL (0.00-0.70); Eosinophils % (Auto) 18.4 % (0.0-7.0); Hematocrit 27.7 % (34.1-44.9); Hemoglobin 8.3 g/dL (11.2-15.7); Lymphocytes # (Auto) 2.41 K/mcL (1.50-4.80); Lymphocytes % (Auto) 18.2 % (15.5-49.0); Mean Cell Volume 73.7 fL (80.0-100.0); Mean Platelet Volume 9.4 fL (8.8-12.5); Monocytes # (Auto) 1.22 K/mcL (0.10-0.90); Monocytes % (Auto) 9.2 % (1.0-12.0); Neutrophils % (Auto) 52.8 % (38.0-78.0); Platelet Count 357 K/mcL (140-440); RBC 3.76 M/mcL (3.59-5.38); Red Cell Distribution Width 31.4 % (11.5-14.5); WBC 13.2 K/mcL (4.5-11.0)
[2022-12-07 07:09] LABS: ALT/SGPT 56 U/L (<40); AST/SGOT 101 U/L (<32); Albumin 2.5 gm/dL (3.2-5.2); Albumin/Globulin Ratio 0.7 (1.0-2.3); Alkaline Phosphatase 344 U/L (39-117); Bilirubin,Direct 0.8 mg/dL (<0.3); Bilirubin,Total 1.3 mg/dL (0.1-1.0); Blood Urea Nitrogen 17 mg/dL (8-23); Calcium 7.9 mg/dL (8.6-10.4); Carbon Dioxide 17 mmol/L (22-30); Chloride 101 mmol/L (96-108); Globulin 3.7 gm/dL (2.2-3.7); Glomerular Filtration Rate 42; Glucose 90 mg/dL (70-105); Lactate Dehydrogenase 251 U/L (135-225); Phosphorous 3.2 mg/dL (2.5-4.5); Triglycerides 86 mg/dL (<150); Uric Acid 8.5 mg/dL (2.5-8.0)
[2022-12-07] MEDS: LEVOTHYROXINE 100 MCG TABLET PO SCH (08:05)
[2022-12-07] MEDS: 0.9 % SODIUM CHLORIDE 1,000 ML IV SCH ×2 (08:06→17:16)
[2022-12-07] MEDS: CIPROFLOXACIN 400 MG/200 ML BAG IV SCH ×2 (09:04→21:50)
[2022-12-07] MEDS: FUROSEMIDE 80 MG TABLET PO SCH ×2 (09:07→16:18)
[2022-12-07] MEDS: VENLAFAXINE 37.5 MG TABLET PO SCH ×2 (09:07→20:05)
[2022-12-07] MEDS: SODIUM CHLORIDE 1 GM TABLET PO SCH (09:07)
[2022-12-07] MEDS: POTASSIUM CHLORIDE 20 MEQ TABLET PO SCH ×2 (09:07→17:35)
[2022-12-07] MEDS: POLYETHYLENE GLYCOL 3350 17 GM PACKET PO SCH ×3 (09:07→20:05)
[2022-12-07] MEDS: ATENOLOL 50 MG TABLET PO SCH ×2 (09:08→20:05)
[2022-12-07] MEDS: LINEZOLID 600 MG/300 ML BAG IV SCH ×2 (10:20→20:06)
[2022-12-07] MEDS: FLUCONAZOLE 400 MG/200 ML BAG IV SCH (11:51)
[2022-12-08] MEDS: 0.9 % SODIUM CHLORIDE 1,000 ML IV SCH ×3 (01:30→22:13)
[2022-12-08] MEDS: 0.9 % SODIUM CHLORIDE 10 ML SYRINGE IV SCH ×3 (05:17→20:23)
[2022-12-08] MEDS: POTASSIUM CHLORIDE 20 MEQ TABLET PO SCH ×3 (07:57→17:15)
[2022-12-08] MEDS: FUROSEMIDE 80 MG TABLET PO SCH ×3 (07:58→15:42)
[2022-12-08] MEDS: LEVOTHYROXINE 100 MCG TABLET PO SCH ×2 (07:58→08:48)
[2022-12-08 08:09] LABS: Basophils # (Auto) 0.04 K/mcL (0.00-0.30); Basophils % (Auto) 0.4 % (0.0-2.0); Eosinophils # (Auto) 0.29 K/mcL (0.00-0.70); Eosinophils % (Auto) 2.8 % (0.0-7.0); Hematocrit 27.5 % (34.1-44.9); Hemoglobin 8.3 g/dL (11.2-15.7); Lymphocytes # (Auto) 1.68 K/mcL (1.50-4.80); Lymphocytes % (Auto) 16.3 % (15.5-49.0); Mean Cell Volume 72.8 fL (80.0-100.0); Mean Corpuscular HGB Conc 30.2 g/dL (31.0-36.0); Mean Platelet Volume 9.5 fL (8.8-12.5); Monocytes # (Auto) 0.63 K/mcL (0.10-0.90); Monocytes % (Auto) 6.1 % (1.0-12.0); Neutrophils % (Auto) 73.9 % (38.0-78.0); Platelet Count 309 K/mcL (140-440); RBC 3.78 M/mcL (3.59-5.38); Red Cell Distribution Width 31.1 % (11.5-14.5); WBC 10.3 K/mcL (4.5-11.0)
[2022-12-08] MEDS: SODIUM CHLORIDE 1 GM TABLET PO SCH (08:49)
[2022-12-08] MEDS: POLYETHYLENE GLYCOL 3350 17 GM PACKET PO SCH ×3 (08:49→20:23)
[2022-12-08] MEDS: VENLAFAXINE 37.5 MG TABLET PO SCH ×2 (08:49→20:23)
[2022-12-08] MEDS: ATENOLOL 50 MG TABLET PO SCH ×2 (08:49→20:23)
[2022-12-08 09:51] LABS: ALT/SGPT 52 U/L (<40); AST/SGOT 107 U/L (<32); Albumin 2.8 gm/dL (3.2-5.2); Albumin/Globulin Ratio 0.8 (1.0-2.3); Alkaline Phosphatase 339 U/L (39-117); Bilirubin,Direct 0.9 mg/dL (<0.3); Bilirubin,Total 1.6 mg/dL (0.1-1.0); Blood Urea Nitrogen 19 mg/dL (8-23); Calcium 8.3 mg/dL (8.6-10.4); Carbon Dioxide 19 mmol/L (22-30); Chloride 103 mmol/L (96-108); Globulin 3.5 gm/dL (2.2-3.7); Glomerular Filtration Rate 35; Glucose 103 mg/dL (70-105); Lactate Dehydrogenase 214 U/L (135-225); Phosphorous 3.5 mg/dL (2.5-4.5); Triglycerides 79 mg/dL (<150); Uric Acid 9.6 mg/dL (2.5-8.0)
[2022-12-08] MEDS: LINEZOLID 600 MG/300 ML BAG IV SCH ×2 (09:59→20:26)
[2022-12-08] MEDS: CIPROFLOXACIN 400 MG/200 ML BAG IV SCH ×2 (11:10→22:13)
[2022-12-08] MEDS: FLUCONAZOLE 400 MG/200 ML BAG IV SCH (12:20)
[2022-12-08] MEDS: HYDROmorphone 0.5 MG/0.5 ML SYRINGE IV PRN (18:44)
[2022-12-09] MEDS: HYDROmorphone 0.5 MG/0.5 ML SYRINGE IV PRN ×4 (01:10→14:58)
[2022-12-09] MEDS: 0.9 % SODIUM CHLORIDE 10 ML SYRINGE IV SCH ×2 (05:17→14:04)
[2022-12-09 06:51] LABS: Basophils # (Auto) 0.08 K/mcL (0.00-0.30); Basophils % (Auto) 0.6 % (0.0-2.0); Eosinophils # (Auto) 0.89 K/mcL (0.00-0.70); Eosinophils % (Auto) 7.1 % (0.0-7.0); Hematocrit 26.7 % (34.1-44.9); Hemoglobin 7.9 g/dL (11.2-15.7); Lymphocytes # (Auto) 2.32 K/mcL (1.50-4.80); Lymphocytes % (Auto) 18.5 % (15.5-49.0); Mean Corpuscular HGB Conc 29.6 g/dL (31.0-36.0); Mean Platelet Volume 9.5 fL (8.8-12.5); Monocytes # (Auto) 0.74 K/mcL (0.10-0.90); Monocytes % (Auto) 5.9 % (1.0-12.0); Neutrophils % (Auto) 67.5 % (38.0-78.0); Platelet Count 247 K/mcL (140-440); RBC 3.56 M/mcL (3.59-5.38); Red Cell Distribution Width 31.7 % (11.5-14.5); WBC 12.5 K/mcL (4.5-11.0)
[2022-12-09 07:11] LABS: ALT/SGPT 44 U/L (<40); AST/SGOT 81 U/L (<32); Albumin 2.2 gm/dL (3.2-5.2); Albumin/Globulin Ratio 0.6 (1.0-2.3); Alkaline Phosphatase 301 U/L (39-117); Bilirubin,Direct 0.7 mg/dL (<0.3); Bilirubin,Total 1.2 mg/dL (0.1-1.0); Blood Urea Nitrogen 20 mg/dL (8-23); Calcium 8.2 mg/dL (8.6-10.4); Carbon Dioxide 19 mmol/L (22-30); Chloride 104 mmol/L (96-108); Globulin 3.8 gm/dL (2.2-3.7); Glomerular Filtration Rate 35; Glucose 92 mg/dL (70-105); Lactate Dehydrogenase 178 U/L (135-225); Phosphorous 3.3 mg/dL (2.5-4.5); Triglycerides 79 mg/dL (<150); Uric Acid 10.4 mg/dL (2.5-8.0)
[2022-12-09] MEDS: LEVOTHYROXINE 100 MCG TABLET PO SCH (08:24)
[2022-12-09] MEDS: POTASSIUM CHLORIDE 20 MEQ TABLET PO SCH (08:24)
[2022-12-09] MEDS: FUROSEMIDE 80 MG TABLET PO SCH (08:24)
[2022-12-09] MEDS: VENLAFAXINE 37.5 MG TABLET PO SCH (08:24)
[2022-12-09] MEDS: POLYETHYLENE GLYCOL 3350 17 GM PACKET PO SCH ×2 (08:25→14:58)
[2022-12-09] MEDS: ATENOLOL 50 MG TABLET PO SCH (08:25)
[2022-12-09] MEDS: LINEZOLID 600 MG/300 ML BAG IV SCH (09:11)
[2022-12-09] MEDS: 0.9 % SODIUM CHLORIDE 1,000 ML IV SCH (09:11)
[2022-12-09] MEDS: CIPROFLOXACIN 400 MG/200 ML BAG IV SCH (10:11)
[2022-12-09] MEDS: FLUCONAZOLE 400 MG/200 ML BAG IV SCH (11:35)
== END 2022-12-09 15:20 ==
LOC: ED 12:55 → MEDSUR 11-25 12:37
PROVIDERS: ADMIT Family Medicine Adult Medicine; ATTEND Family Medicine Adult Medicine